=== PATIENT | male | born 1935 | race Caucasian/White ===

== ENCOUNTER → 2017-01-05 | Outpatient (CLI) | payer OTHER ==
[~2017-01-05] MED LIST: ASPEC81 PO; CLTP PO; CZR50 PO; FELO5TAB PO; GLC/500 PO; METAMUCIL PO; OMEG10007 PO; SIMV40TA2 PO
[2017-01-05 12:25] LABS: ALT/SGPT 45 U/L (12-78); AST/SGOT 22 U/L (15-37); BLOOD UREA NITROGEN 23 mg/dl (7-18); BUN/CREATININE RATIO 15.6 (10-20); CALCIUM 9.2 mg/dl (8.5-10.1); CARBON DIOXIDE 26 mmol/L (21-32); CHLORIDE 109 mmol/L (98-107); ESTIMATED AVERAGE GLUCOSE 143 mg/dl; GLUCOSE 155 mg/dl (70-99); HA1C FLAG Normal (Normal); POTASSIUM 4.1 mmol/L (3.5-5.1); SODIUM 140 mmol/L (136-145)
[2017-01-05 12:27] LABS: ALB/GLOB RATIO 1.1 (0.9-2); ALKALINE PHOSPHATASE 65 U/L (45-117); CHOLESTEROL 154 mg/dl (0-200); CHOLESTEROL/HDL RATIO 3.9; HDL CHOLESTEROL 39 mg/dl; LDL CHOLESTEROL CALCULATED 80 mg/dl; TRIGLYCERIDES 174 mg/dl (0-150); VERY LOW DENSITY LIPOPROT CALC 35 mg/dl
== END | disposition home or self-care (01) ==
LOC: C.LABPVFM 08:19
PROVIDERS: ATTEND Family Medicine
DX: E78.5 Hyperlipidemia, unspecified (principal); E11.9 Type 2 diabetes mellitus without complications; I10 Essential (primary) hypertension

== ENCOUNTER → 2017-01-31 | Outpatient (CLI) | payer OTHER | END | disposition home or self-care (01) | LOC: C.LABPVFM 13:59 | PROVIDERS: ATTEND Urology | DX: R35.1 Nocturia (principal) ==

== ENCOUNTER → 2017-06-15 | Outpatient (CLI) | payer OTHER ==
[2017-06-15 13:04] LABS: HEMOGLOBIN A1C 7.3 % (4.5-5.6)
[2017-06-15 13:09] LABS: BLOOD UREA NITROGEN 22 mg/dl (7-18); CALCIUM 9.4 mg/dl (8.5-10.1); CARBON DIOXIDE 26 mmol/L (21-32); CHOLESTEROL 137 mg/dl (0-200); CREATININE 1.35 mg/dl (0.60-1.40); GLUCOSE 162 mg/dl (70-99); POTASSIUM 3.9 mmol/L (3.5-5.1); SODIUM 138 mmol/L (136-145)
[2017-06-15 13:12] LABS: LDL CHOLESTEROL CALCULATED 70 mg/dl
== END | disposition home or self-care (01) ==
LOC: C.LABPVFM 10:46
PROVIDERS: ATTEND Family Medicine
DX: I10 Essential (primary) hypertension (principal); E11.9 Type 2 diabetes mellitus without complications; E78.5 Hyperlipidemia, unspecified

== ENCOUNTER → 2018-01-06 | Outpatient (CLI) | payer OTHER ==
[2018-01-06 13:05] LABS: HEMOGLOBIN A1C 7.2 % (4.5-5.6)
[2018-01-06 13:19] LABS: ALKALINE PHOSPHATASE 58 U/L (45-117); ALT/SGPT 51 U/L (12-78); AST/SGOT 26 U/L (15-37); BLOOD UREA NITROGEN 26 mg/dl (7-18); CALCIUM 9.3 mg/dl (8.5-10.1); CARBON DIOXIDE 27 mmol/L (21-32); CHOLESTEROL 131 mg/dl (0-200); CREATININE 1.24 mg/dl (0.60-1.40); GLUCOSE 164 mg/dl (70-99); LDL CHOLESTEROL CALCULATED 62 mg/dl; POTASSIUM 3.7 mmol/L (3.5-5.1); SODIUM 136 mmol/L (136-145); TOTAL PROTEIN 7.7 gm/dl (6.4-8.2)
== END | disposition home or self-care (01) ==
LOC: C.LABPVFM 08:54
PROVIDERS: ATTEND Family Medicine
DX: I10 Essential (primary) hypertension (principal)

== ENCOUNTER → 2018-01-25 | Outpatient (CLI) | payer OTHER | END | disposition home or self-care (01) | LOC: C.LABPVFM 09:17 | PROVIDERS: ATTEND Urology | DX: C61 Malignant neoplasm of prostate (principal) ==

== ENCOUNTER 2022-10-05 14:25 | Inpatient (IN) ==
--- NOTE | 2022-10-05 15:03 | ED Triage Note ---
Date of Service October 05, 2022 History of Present Illness This patient was briefly evaluated while in triage. An abbreviated physical exam was performed. This patient is a 87-year-old Male who presents to the ED for evaluation of elevated glucose levels. The patient was just seen at Dr. Lazaro's office, with recent diagnosis of AML. His blood glucose levels have been significantly elevated, with known history of diabetes. Dr. Velásquez believes that the patient needs to be assessed and possibly transferred to [facility] for further comprehensive care. Patient denies any other significant symptoms including chest pain or shortness of breath. He denies any recent illness or exposure to anyone who has been sick. The patient was administered insulin 10 units at 12:15 PM. Physical Exam CONSTITUTIONAL: Patient does not appear in any acute distress HEENT: No scleral icterus. RESPIRATORY: Clear to auscultation bilaterally with no wheezing, crackles, rhonchi or stridor. CARDIOVASCULAR: Regular rate and rhythm with no murmurs, rubs or gallops. GASTROINTESTINAL: Bowel sounds present in all quadrants. INTEGUMENTARY: No rash or other significant dermatologic conditions noted. NEUROLOGIC: No focal neurologic deficits noted. Initial orders for labs and / or imaging were placed and patient was placed in the waiting area until a bed is available. Please see further documentation for the full ED course.
[2022-10-05] MEDS ORDERED: SODIUM CHLORIDE 0.9% 1000ML 1,000 ML IV STA (15:05)
[2022-10-05 16:13] LABS: Hemoglobin 7.8 g/dl (14.0-18.0); Mean Corpuscular Hemoglobin 36.4 pg (25.0-34.0); Mean Corpuscular Hgb Conc 35.5 g/dL (32.0-36.0); Mean Corpuscular Volume 102.8 fL (80.0-100.0); Mean Platelet Volume 11.8 fL (9.4-12.4); Platelet Count 36 K/uL (130-400); RDW Coefficient of Variation 16.2 % (11.5-14.5); Red Blood Count 2.14 M/uL (4.70-6.10)
--- NOTE | 2022-10-05 16:15 | Emergency Department Note ---
Impression & Plan DKA (diabetic ketoacidosis), Acute myeloid leukemia, Hyperglycemia ED Provider Note INFORMANT: Patient and family ED PROVIDER(S): Stone Ortega MD CHIEF COMPLAINT: Hyperglycemia and AML PLAN: Disposition: Admitted Condition: Good Outpatient prescription management: None Referral: None MEDICAL DECISION MAKING: Patient presented by direction of oncology. He was evaluated. Vital signs were stable. Blood work was initiated. He was found to have pancytopenia but his l evels were slightly better than prior. Patient's chemistry panel was concerning as he had findings concerning for mild DKA. Patient was hydrated. Discussed with ED pharmacist and started insulin drip. I did discuss his situation with Dr. Tay his referring oncologist. He did request a consultation with [facility]. I discussed the case with Dr. Meek at [facility] oncology. She felt that the patient did not require transfer this evening and she requested that Dr. Tay be in touch with the [facility] network tomorrow to discuss the case with the leukemia specialist there and further plan the patient's care. I did notify Dr. Lazaro of this and he was in agreement. Consultation was made with Dr. Estiven Ramirez of the [facility] service. Case was discussed and diagnostics were reviewed. Patient was evaluated in the ER for further management. Discussed with housing assistant property manager. Discussed with ED pharmacist. After review of the information above and other included data, I feel the patient requires admission. Triage Nursing notes reviewed and agree them. Vital Signs: reviewed and remarkable for no significant abnormalities Prior /Outside records reviewed: Primary care records reviewed. History of pancytopenia. Differential diagnosis: Infection, dehydration, metabolic abnormality, hypo/hyperglycemia, electrolyte disturbance, anemia, hypoxia, cardiac sources, intracerebral event, toxicologic, neurologic, as well as other pathologies. Diagnostics, as interpreted by me: ECG: Twelve-lead ECG reveals a sinus rhythm with occasional PVCs at 82 bpm. PVCs. Incomplete right bundle branch block. Nonspecific ST. No ST elevation. Cardiac Monitoring: Cardiac monitoring ordered by me: The patient was placed on continuous cardiac monitoring and observed. It revealed a sinus rhythm at 82 beats per minute occasional ectopy but no evidence of dysrhythmia. Medical decision rules: none Imaging studies: Chest x-ray. Findings: A chest x-ray was performed and revealed no pneumothorax, effusion, infiltrate, pulmonary edema, free air under the diaphragm, or wide mediastinum. Impression: No acute disease. HPI: This patient is a 87-year-old male who presents to the ED for evaluation of high blood glucose levels. The patient was just seen at oncology, Dr. Lazaro's office, with recent diagnosis of AML. His blood glucose levels have been significantly elevated, with known history of diabetes. The patient was administered insulin 10 units at 12:15 PM. He denies any recent illness or exposure to anyone who has been sick. Current pain is rated as 0/10. Pt denies LOC, headache, fevers, chills, diaphoresis, visual changes, neck pain, chest pain, breathing difficulties, nausea, vomiting, abdominal pain, back pain, melena, hematochezia, urinary symptoms, numbness, weakness, lymphadenopathy, rash, or other complaints. PAST MEDICAL HISTORY: See Below, anemia, pancytopenia PAST SURGICAL HISTORY: See Below, SOCIAL HISTORY: See Below, retired HOME MEDICATIONS: See Below ALLERGIES: See Below VITALS: See Below PHYSICAL EXAMINATION: GENERAL: Awake, alert, [id number], in no distress HENT: Normocephalic, atraumatic. Oropharynx unremarkable. EYES: pale conjunctiva. Sclera non-icteric. NECK: Inspection normal. Non-tender. Supple. No nuchal rigidity. FROM. No masses. RESPIRATORY: Clear to auscultation. No wheezes. No rales. Normal respiratory effort. CARDIAC: Normal rate. Normal rhythm. No murmurs. No rubs. Extremities warm and well perfused. Pulses equal. No JVD. GI: Soft, non-distended. No tenderness to palpation. No rebound or guarding. No masses. RECTAL: Deferred. MUSCULOSKELETAL: Atraumatic. Chest examination reveals no tenderness. The back is symmetrical on inspection without obvious abnormality. There is no CVA tenderness to palpation. No joint edema. LOWER EXTREMITIES: Calves are equal size bilaterally and non-tender. No edema. No discoloration. NEURO: Normal sensorium. No sensory or motor deficits noted. SKIN: No rash or jaundice noted. Past Med/Surg History Medical History Diabetes Diverticulosis of colon History of prostate cancer Surgical History History of hernia repair Family History Denies family history of Ovarian cancer Prostate cancer Myocardial infarction Breast cancer Colorectal cancer Social History Smoking Status: Never smoker Second Hand Exposure: No; Do You Dip or Chew Tobacco: No; Hx Alcohol Use: No Hx Substance Use: No Preferred Language: Yoruba Communication Ability: Effective Park Ranger Required: No Beliefs That Will Affect Care: None marital status: Current Living Situation: Spouse current occupational status: retired How many Children do You have: 3 Feels Safe at Home: Yes Childhood Exposure to Second-Hand Smoke: No Diet: regular caffeine: Yes (Iced Tea ) Dental Care, Regularly: Yes Physical Activity Frequency: Daily Seatbelt Use: always Sunscreen Use: No Allergies Allergies Allergy/AdvReac Type Severity Reaction Status Date / Time No Known Allergies Allergy Verified 10/05/22 18:05 Home Meds Home Medications Medication Instructions Recorded Confirmed aspirin 81 mg tablet,delayed 81 mg PO DAILY 01/05/19 10/05/22 release amlodipine 10 mg tablet 10 mg PO DAILY 10/05/22 10/05/22 hydrochlorothiazide 12.5 mg tablet 12.5 mg PO QAM 10/05/22 10/05/22 psyllium husk 0.52 gram capsule 0.52 g PO BID 10/05/22 10/05/22 (Fiber (psyllium husk)) Previous Rx's Medication Instructions Recorded metformin 1,000 mg tablet 1,000 mg PO BID #180 tabs 03/19/22 atorvastatin 20 mg tablet 20 mg PO DAILY #90 tabs 04/06/22 cyanocobalamin (vitamin B-12) 1,000 mcg PO DAILY #30 tabs 09/03/22 1,000 mcg tablet (Vitamin B-12) magnesium hydroxide 400 mg (170 mg 400 mg PO DAILY #60 tabs 09/03/22 magnesium) chewable tablet losartan 50 mg tablet 50 mg PO DAILY #90 tabs 09/07/22 blood sugar diagnostic (OneTouch #100 ea 10/04/22 Ultra Test strips) blood-glucose meter (Blood Glucose #1 ea 10/04/22 Monitoring kit) lancets 33 gauge (BD Ultra Fine #100 ea 10/04/22 Lancets) insulin glargine 100 unit/mL (3 10 unit (0.1 mL) subcut QPM #15 mL 10/05/22 mL) subcutaneous pen (Lantus Solostar U-100 Insulin) pen needle, diabetic, safety 30 #100 ea 10/05/22 gauge x 3/16" (Assure ID Pen Needle) Results & Data (ED) Vital Signs Vital Signs - 24 hr 10/05/22 15:00 10/05/22 15:36 10/05/22 15:37 Temperature 36.3 C L Temperature Source Temporal Artery Scan Pulse Rate 84 77 Pulse Rate [Right Apical] 77 Pulse Rate from SpO2 Sensor Pulse Rhythm Regular Pulse Strength Normal Respiratory Rate 20 16 18 Respiratory Effort / Characteristics Non-Labored Spontaneous Non-Labored Spontaneous Respiratory Depth Normal Normal Respiratory Pattern Regular Regular Blood Pressure 128/70 Blood Pressure [Right Arm] 139/64 Blood Pressure Mean 89 Blood Pressure Mean [Right Arm] 89 Blood Pressure Position Sitting Pulse Oximetry 97 96 96 Oxygen Delivery Method Room Air Room Air Room Air Sepsis Recent Fever Within 48 Hours No Sepsis New/Unexplained Change in Mental Status No Sepsis Action Taken by Nursing No Action Required 10/05/22 15:28 10/05/22 16:00 10/05/22 16:30 Temperature Temperature Source Pulse Rate 73 82 80 Pulse Rate [Right Apical] Pulse Rate from SpO2 Sensor 81 78 Pulse Rhythm Pulse Strength Respiratory Rate 24 22 Respiratory Effort / Characteristics Respiratory Depth Respiratory Pattern Blood Pressure 132/68 128/48 L Blood Pressure [Right Arm] Blood Pressure Mean 89 74 Blood Pressure Mean [Right Arm] Blood Pressure Position Pulse Oximetry 92 92 Oxygen Delivery Method Room Air Room Air Sepsis Recent Fever Within 48 Hours Sepsis New/Unexplained Change in Mental Status Sepsis Action Taken by Nursing 10/05/22 17:00 10/05/22 17:30 10/05/22 19:00 Temperature Temperature Source Pulse Rate 81 82 89 Pulse Rate [Right Apical] Pulse Rate from SpO2 Sensor 81 84 Pulse Rhythm Pulse Strength Respiratory Rate 23 23 24 Respiratory Effort / Characteristics Respiratory Depth Respiratory Pattern Blood Pressure 159/68 H 155/76 H 160/75 H Blood Pressure [Right Arm] Blood Pressure Mean 98 102 103 Blood Pressure Mean [Right Arm] Blood Pressure Position Pulse Oximetry 91 91 Oxygen Delivery Method Room Air Room Air Sepsis Recent Fever Within 48 Hours Sepsis New/Unexplained Change in Mental Status Sepsis Action Taken by Nursing Laboratory Data 10/05/22 15:24 10/05/22 15:24 Lab Results 10/05/22 10/05/22 10/05/22 Range/Units 15:24 15:24 15:24 WBC 1.00 L (4.8-10.8) K/ul RBC 2.14 L (4.70-6.10) M/uL Hgb 7.8 L (14.0-18.0) g/dl Hct 22.0 L (42.0-52.0) % MCV 102.8 H (80.0-100.0) fL MCH 36.4 H (25.0-34.0) pg MCHC 35.5 (32.0-36.0) g/dL RDW Std Deviation 59.0 H (36.4-46.3) fL RDW Coeff of Carola 16.2 H (11.5-14.5) % Plt Count 36 L (130-400) K/uL MPV 11.8 (9.4-12.4) fL Immature Gran % (Auto) 1.0 % Neut % (Auto) 47.0 % Lymph % (Auto) 45.0 % Cooke % (Auto) 7.0 % Eos % (Auto) 0.0 % Baso % (Auto) 0.0 % Neut # (Auto) 0.47 L* (1.40-6.50) K/uL Lymph # (Auto) 0.45 L (1.2-3.4) K/uL Cooke # (Auto) 0.07 L (0.11-0.59) K/uL Eos # (Auto) 0.00 (0-0.50) K/uL Baso # (Auto) 0.00 (0-0.2) K/uL Immature Gran # (Auto) 0.01 (0.01-0.20) K/uL Platelet Estimate Decreased L (Normal) Ovalocytes 2+ Acanthocytes (Spur) 1+ PT 12.6 H (9.0-12.0) Seconds INR 1.2 H (0.9-1.1) APTT 20.8 L (21.0-31.0) Seconds PTT Ratio 0.7 VBG pH (7.36-7.41) VBG pCO2 (38-50) mmHg VBG pO2 mmHg VBG HCO3 mmol/L VBG O2 Saturation % VBG Base Excess mEq/L Sodium 131 L (136-145) mmol/L Potassium 4.1 (3.5-5.1) mmol/L Chloride 94 L (98-107) mmol/L Carbon Dioxide 19 L (21-32) mmol/L Anion Gap 18 H (3-11) BUN 35 H (6-23) mg/dl Creatinine 1.46 H (0.6-1.4) mg/dl Est Cr Clr Drug Dosing 37.5 ml/min Est GFR ( Amer) 49.8 ml/min Est GFR (Non-Af Amer) 42.9 ml/min BUN/Creatinine Ratio 24.0 H (10-20) Glucose 454 H* (70-99(Fasting)) mg/dl POC Glucose (70-99) mg/dl Calcium 9.3 (8.6-10.3) mg/dl Total Bilirubin 1.0 (0.2-1.0) mg/dl AST 11 L (13-39) U/L ALT 12 (7-52) U/L Alkaline Phosphatase 58 (34-104) U/L Troponin I High Sens 13.2 (0-20) pg/ml Total Protein 7.0 (6.0-8.3) gm/dl Albumin 3.8 (3.4-5.0) gm/dl Globulin 3.2 (2.5-4.0) gm/dl Albumin/Globulin Ratio 1.2 (0.9-2) Lipase 47 (11-82) U/L SARS-CoV-2, RNA, NAAT (NEGATIVE) Blood Type Antibody Screen 10/05/22 10/05/22 10/05/22 Range/Units 16:49 16:49 17:01 WBC (4.8-10.8) K/ul RBC (4.70-6.10) M/uL Hgb (14.0-18.0) g/dl Hct (42.0-52.0) % MCV (80.0-100.0) fL MCH (25.0-34.0) pg MCHC (32.0-36.0) g/dL RDW Std Deviation (36.4-46.3) fL RDW Coeff of Carola (11.5-14.5) % Plt Count (130-400) K/uL MPV (9.4-12.4) fL Immature Gran % (Auto) % Neut % (Auto) % Lymph % (Auto) % Cooke % (Auto) % Eos % (Auto) % Baso % (Auto) % Neut # (Auto) (1.40-6.50) K/uL Lymph # (Auto) (1.2-3.4) K/uL Cooke # (Auto) (0.11-0.59) K/uL Eos # (Auto) (0-0.50) K/uL Baso # (Auto) (0-0.2) K/uL Immature Gran # (Auto) (0.01-0.20) K/uL Platelet Estimate (Normal) Ovalocytes Acanthocytes (Spur) PT (9.0-12.0) Seconds INR (0.9-1.1) APTT (21.0-31.0) Seconds PTT Ratio VBG pH 7.39 (7.36-7.41) VBG pCO2 35 L (38-50) mmHg VBG pO2 16 mmHg VBG HCO3 21 mmol/L VBG O2 Saturation < 60.0 % VBG Base Excess -3.1 mEq/L Sodium (136-145) mmol/L Potassium (3.5-5.1) mmol/L Chloride (98-107) mmol/L Carbon Dioxide (21-32) mmol/L Anion Gap (3-11) BUN (6-23) mg/dl Creatinine (0.6-1.4) mg/dl Est Cr Clr Drug Dosing ml/min Est GFR ( Amer) ml/min Est GFR (Non-Af Amer) ml/min BUN/Creatinine Ratio (10-20) Glucose (70-99(Fasting)) mg/dl POC Glucose 437 H* (70-99) mg/dl Calcium (8.6-10.3) mg/dl Total Bilirubin (0.2-1.0) mg/dl AST (13-39) U/L ALT (7-52) U/L Alkaline Phosphatase (34-104) U/L Troponin I High Sens (0-20) pg/ml Total Protein (6.0-8.3) gm/dl Albumin (3.4-5.0) gm/dl Globulin (2.5-4.0) gm/dl Albumin/Globulin Ratio (0.9-2) Lipase (11-82) U/L SARS-CoV-2, RNA, NAAT (NEGATIVE) Blood Type O Positive Antibody Screen NEGATIVE 10/05/22 10/05/22 10/05/22 Range/Units 17:06 17:43 18:45 WBC (4.8-10.8) K/ul RBC (4.70-6.10) M/uL Hgb (14.0-18.0) g/dl Hct (42.0-52.0) % MCV (80.0-100.0) fL MCH (25.0-34.0) pg MCHC (32.0-36.0) g/dL RDW Std Deviation (36.4-46.3) fL RDW Coeff of Carola (11.5-14.5) % Plt Count (130-400) K/uL MPV (9.4-12.4) fL Immature Gran % (Auto) % Neut % (Auto) % Lymph % (Auto) % Cooke % (Auto) % Eos % (Auto) % Baso % (Auto) % Neut # (Auto) (1.40-6.50) K/uL Lymph # (Auto) (1.2-3.4) K/uL Cooke # (Auto) (0.11-0.59) K/uL Eos # (Auto) (0-0.50) K/uL Baso # (Auto) (0-0.2) K/uL Immature Gran # (Auto) (0.01-0.20) K/uL Platelet Estimate (Normal) Ovalocytes Acanthocytes (Spur) PT (9.0-12.0) Seconds INR (0.9-1.1) APTT (21.0-31.0) Seconds PTT Ratio VBG pH (7.36-7.41) VBG pCO2 (38-50) mmHg VBG pO2 mmHg VBG HCO3 mmol/L VBG O2 Saturation % VBG Base Excess mEq/L Sodium (136-145) mmol/L Potassium (3.5-5.1) mmol/L Chloride (98-107) mmol/L Carbon Dioxide (21-32) mmol/L Anion Gap (3-11) BUN (6-23) mg/dl Creatinine (0.6-1.4) mg/dl Est Cr Clr Drug Dosing ml/min Est GFR ( Amer) ml/min Est GFR (Non-Af Amer) ml/min BUN/Creatinine Ratio (10-20) Glucose (70-99(Fasting)) mg/dl POC Glucose 441 H* 357 H* (70-99) mg/dl Calcium (8.6-10.3) mg/dl Total Bilirubin (0.2-1.0) mg/dl AST (13-39) U/L ALT (7-52) U/L Alkaline Phosphatase (34-104) U/L Troponin I High Sens (0-20) pg/ml Total Protein (6.0-8.3) gm/dl Albumin (3.4-5.0) gm/dl Globulin (2.5-4.0) gm/dl Albumin/Globulin Ratio (0.9-2) Lipase (11-82) U/L SARS-CoV-2, RNA, NAAT NEGATIVE (NEGATIVE) Blood Type Antibody Screen Administered Medications Insulin Human Regular 250 (units/ Sodium Chloride) 250 mls @ 6.6 mls/hr IV .Q24H [facility]; Protocol Stop: 11/04/22 16:44 Last Titration: 10/05/22 19:45 Dose: 6.6 unit/hr, 6.6 mls/hr Documented By: MARZENA Co-signed By: KRISTIAN Titration: 10/05/22 18:54 Dose: 8.2 unit/hr, 8.2 mls/hr Documented By: SHAUNA Co-signed By: STAN Admin: 10/05/22 17:45 Dose: 8.2 unit/hr, 8.2 mls/hr Documented By: STAN Co-signed By: HG Discontinued Medications Sodium Chloride (Nss 1000ml) 1,000 mls @ 999 mls/hr IV .Q1H1M STA Stop: 10/05/22 16:05 Last Infusion: 10/05/22 16:47 Dose: 0 mls/hr Documented By: Admin: 10/05/22 15:38 Dose: 999 mls/hr Documented By: STAN Sodium Chloride (Nss 1000ml) 500 mls @ 999 mls/hr IV .Q31M ONE Stop: 10/05/22 17:10 Last Infusion: 10/05/22 17:36 Dose: 0 mls/hr Documented By: Admin: 10/05/22 17:04 Dose: 999 mls/hr Documented By: STAN Sodium Chloride (Nss 1000ml) 1,000 mls @ 125 mls/hr IV .Q8H YUNIER Stop: 11/04/22 16:44 Last Admin: 10/05/22 18:11 Dose: 125 mls/hr Documented By: Imaging Data Radiologist's Impression: Chest X-Ray 10/05/22 15:05 SINGLE VIEW CHEST CLINICAL HISTORY: Atypical chest pain FINDINGS: An AP, portable, upright chest radiograph is compared to study dated 09/03/2022. The heart is mildly enlarged noting atherosclerotic calcification of the thoracic aorta. The pulmonary vasculature is noncongested. There is bibasilar scarring/atelectasis. The lungs and pleural spaces are otherwise clear. No pneumothorax is seen. The skeletal structures are osteopenic. The bony thorax is grossly intact. IMPRESSION: Cardiomegaly with no acute cardiopulmonary abnormality identified. ACT 112: Negative or not required by law. Electronically signed by: Ken Gupta M.D. 10/05/2022 4:42 PM Discharge Plan Visit Data Chief Complaint: Illness Stated Complaint: high blood sugar, iron transfusion, aml ED Provider: Stone Ortega Discharge Problem: DKA (diabetic ketoacidosis), Acute myeloid leukemia, Hyperglycemia Patient Disposition: Admitted As Inpatient Discharge Instructions Interventions: ED Discharge Assessment Last Done: 10/05/22 20:20
[2022-10-05 16:34] LABS: INR 1.2 (0.9-1.1); Partial Thromboplastin Ratio 0.7; Partial Thromboplastin Time 20.8 Seconds (21.0-31.0); Prothrombin Time 12.6 Seconds (9.0-12.0)
[2022-10-05 16:35] LABS: Albumin Globulin Ratio 1.2 (0.9-2); Albumin Level 3.8 gm/dl (3.4-5.0); Calcium 9.3 mg/dl (8.6-10.3); Creatinine Clr Calc Pharmacy 37.5 ml/min; Est GFR (African American) 49.8 ml/min; Est GFR (Non-African American) 42.9 ml/min; Globulin 3.2 gm/dl (2.5-4.0); Potassium 4.1 mmol/L (3.5-5.1); Troponin I High Sensitivity 13.2 pg/ml (0-20)
[2022-10-05] MEDS ORDERED: SODIUM CHLORIDE 0.9% 1000ML 500 ML IV ONE (16:40)
[2022-10-05] MEDS ORDERED: DKA GOAL RANGE 150-250 mg/dl ONE (16:43)
[2022-10-05] MEDS ORDERED: STAT INSULIN DRIP STA (16:43)
[2022-10-05] MEDS ORDERED: DEXTROSE 50% 50 ML SYRINGE IV PRN (16:43)
[2022-10-05] MEDS ORDERED: GLUCAGON FOR INJ 1 MG VIAL SQ PRN (16:43)
[2022-10-05] MEDS ORDERED: GLUCOSE 10 TAB/TUBE PO PRN (16:43)
[2022-10-05] MEDS ORDERED: GLUCOSE 40% GEL 15 GM TUBE PO PRN (16:43)
[2022-10-05] MEDS ORDERED: CARBOHYDRATES FOR HYPOGLYCEMIA PO PRN (16:43)
--- NOTE | 2022-10-05 16:43 | XRay Report ---
SINGLE VIEW CHEST CLINICAL HISTORY: Atypical chest pain FINDINGS: An AP, portable, upright chest radiograph is compared to study dated 09/03/2022. The heart i s mildly enlarged noting atherosclerotic calcification of the thoracic aorta. The pulmonary vasculatu re is noncongested. There is bibasilar scarring/atelectasis. The lungs and pleural spaces are otherwi se clear. No pneumothorax is seen. The skeletal structures are osteopenic. The bony thorax is grossly intact. IMPRESSION: Cardiomegaly with no acute cardiopulmonary abnormality identified. ACT 112: Negative or not required by law. Electronically signed by: Ken Gupta M.D. 10/05/2022 4:42 PM
[2022-10-05] MEDS ORDERED: SODIUM CHLORIDE 0.9% 1000ML 1,000 ML IV SCH (16:45)
[2022-10-05 17:02] LABS: Acanthocytes 1+; Immature Granulocytes # (auto) 0.01 K/uL (0.01-0.20); Lymphocytes # (auto) 0.45 K/uL (1.2-3.4); Monocytes # (auto) 0.07 K/uL (0.11-0.59); Neutrophils # (auto) 0.47 K/uL (1.40-6.50); Ovalocytes 2+; Platelet Estimate Decreased (Normal)
[2022-10-05 17:09] LABS: Base Excess VBG -3.1 mEq/L; HCO3 VBG 21 mmol/L; Oxygen Saturation VBG < 60.0 %; PCO2 VBG 35 mmHg (38-50); PO2 VBG 16 mmHg; pH VBG 7.39 (7.36-7.41)
[2022-10-05] MEDS: INSULIN REGULAR 250 UNITS in SODIUM CHLORIDE 0.9% 247.5 ML IV SCH (17:45)
--- NOTE | 2022-10-05 18:35 | History & Physical Report ---
Date of Service October 05, 2022 Assessment & Plan (1) Hyperglycemia: Plan: Type II DM, hyperglycemia, HHS. Acute, severe, unstable. On metformin twice daily, glargine 10 units nightly [employer] recently started he only has had 1 dose of insulin total Admitting BSG of 454, received 10 units of insulin with 2-hour repeat of 441. Subsequently placed on insulin drip in ER Remains with elevated glucose Renal function is less than 1.24 at baseline, admitting creatinine 1.46 JAYSON versus previously azotemia Patient has increased anion gap of 18 Bicarb 19, sodium 131 which corrects to normal COVID-negative CXR without acute findings Placed on insulin drip while in the ER. Potassium 4.1 Received 2.5 L NSS IV FM switched to balanced with potassium, rate 125. BMP every 4 hours, adjust potassium as needed, add D5 per protocol N.p.o. until gap closes, bicarb improved BMP every 4 hours, VBG every 4 hours -Once stable basal rate is established, can use to calculate TDD and subcu insulin doses Recently diagnosed AML with pancytopenia Recent diagnosis from biopsy last tuesday performed 2/ pancytopenia, following with [facility] No blast crisis at time of admission, patient is with pancytopenia counts WBC 1.0, hemoglobin 7.8, platelets 36. No acute change in management at this time - Chronic anemia hgb ranging 7-8 - Discussed w Dr. Tillman at [facility] [place]. Does not require acute treatment as patient is not in blast crisis, transfer is declined. Recommend tx for hyperglycemia and hematology consult in AM Bone marrow specimen drawn 10/01/2022 pending final report. Flow cytometry w/ CD34 positive myeloblasts consistent with acute myeloid leukemia, blasts represented 67% of total cellular component. Report copied below Diagnosis: 67% CD34+ myeloblasts, consistent with acute myeloid leukemia. Comments: The flow cytometry findings show increased blasts (67.1% of total cells), consistent with acute myeloid leukemia (AML). Proper WHO classification requires morphological confirmation (current gold standard) as well as correlation with clinical information, cytogenetics, FISH and/or molecular findings. Specimen Viability: 99% Cell Yield: 4.33 Million Hematology/Oncology consulted Follow for signs of bleeding, trend cell counts. Hemoglobin transfusion threshold 7.0, defer quantitatively triggered platelets at this time. Patient is afebrile, without leukocytosis, has had no recent infectious symptoms including cough/nausea/vomiting/fever/chills/shortness of breath. Given his underlying neutropenia may not be able to mount an aggressive fever response. Procalcitonin is pending, blood cultures are pending given presenting hyperglycemia. If patient has fever, procalcitonin is positive, or blood cultures are positive/source of infection declares itself cover with broad- spectrum antibiotics cefepime/vancomycin Hypertension, history of orthostasis Hold losartan in the setting of JAYSON/prerenal azotemia; this was decreased from 100 mg 09/26 due to orthostatic symptoms Continue amlodipine 10 mg daily Aspirin held for thrombocytopenia, patient was on this for primary prophylaxis no history of CAD/IN/CVA Hydrochlorothiazide held for JAYSON versus prerenal azotemia Hyperlipidemia Continue atorvastatin 20 mg DVT prophylaxis: Pharmacal prophylaxis deferred in the setting of platelet count 36, SCDs Disposition: PCU while on insulin gtt CODE STATUS: Full code Diet: N.p.o., once gap closes and bicarb normalizes and BSG less than 250 may advance to type II DM with subcu insulin (2) Acute myeloid leukemia: (3) HTN (hypertension): (4) Uncontrolled diabetes mellitus: (5) Hyperlipidemia: History of Present Illness Primary Care Provider: JACKIE Cohen Akira is an 87-year-old male with a past medical history of AML, DM, hypertension, hyperlipidemia, orthostatic hypotension, and neutropenia who presents to the emergency department with high glucose levels. He was at [facility] following up for a new diagnosis of AML when he was found to have significant hyperglycemia, was given 10 units of insulin, and referred to the ER for further care Akira is seen at the bedside with his two sons present. He was at the [facility] seeing Dr. Tay and was going to see Tanya for AML. Started seeing Dr. Tay 09/17. Had recently gotten prelim results of bone marrow aspiration performed last Tuesday consistent with AML. INitial AML workup was triggered by overall fatigue and weakness which has been present for many weeks. After all blood counts were low went to ER, and was referred to oncology for pancytopenia after. September 17 was scheduled for bone marrow biopsy after getting B12 injection for deficiency. Had 1 pRBC transfusion for low levels last week. Has a hx of DM2, overall sugar levels have been climbing and very poorly controlled. Got a test kit last night from the pharmacy and was 515. >600 this AM (POC machine from pharmacy maxed out). Took first shot of insulin at 12:15pm today, had never beenon insulin prior. Dr. Tay was concerned about BSG and also wanted to facilitate AML care so recommended ER evaluation. Hx HTN, losartan recently decreased by half due to orthostasis a few weeks ago. Aspirin held for several days due to BM biopsy. No hx of CAD/stroke/IN, takes aspirin for primary prevention due to HTN. Hx prostate cancer 14 years ago, had 42 radiation treatments and 3 years of androgen deprivation. No problems since that time. No LUTS. Medical History: Reviewed Medications: Reviewed Surgical History: Reviewed Family history: Reviewed Allergies: Reviewed Social History: Code Status: Allergies Allergy/AdvReac Type Severity Reaction Status Date / Time No Known Allergies Allergy Verified 10/05/22 18:05 Home Medications Medication Instructions Recorded Confirmed Type aspirin 81 mg tablet,delayed 81 mg PO DAILY 01/05/19 10/05/22 History release metformin 1,000 mg tablet 1,000 mg PO BID #180 tabs 03/19/22 10/05/22 Rx atorvastatin 20 mg tablet 20 mg PO DAILY #90 tabs 04/06/22 10/05/22 Rx cyanocobalamin (vitamin B-12) 1,000 mcg PO DAILY #30 tabs 09/03/22 10/05/22 Rx 1,000 mcg tablet (Vitamin B-12) magnesium hydroxide 400 mg (170 mg 400 mg PO DAILY #60 tabs 09/03/22 10/05/22 Rx magnesium) chewable tablet losartan 50 mg tablet 50 mg PO DAILY #90 tabs 09/07/22 10/05/22 Rx blood sugar diagnostic (OneTouch #100 ea 10/04/22 10/05/22 Rx Ultra Test strips) blood-glucose meter (Blood Glucose #1 ea 10/04/22 10/05/22 Rx Monitoring kit) lancets 33 gauge (BD Ultra Fine #100 ea 10/04/22 10/05/22 Rx Lancets) amlodipine 10 mg tablet 10 mg PO DAILY 10/05/22 10/05/22 History hydrochlorothiazide 12.5 mg tablet 12.5 mg PO QAM 10/05/22 10/05/22 History insulin glargine 100 unit/mL (3 10 unit (0.1 mL) subcut QPM #15 mL 10/05/22 10/05/22 Rx mL) subcutaneous pen (Lantus Solostar U-100 Insulin) pen needle, diabetic, safety 30 #100 ea 10/05/22 10/05/22 Rx gauge x 3/16" (Assure ID Pen Needle) psyllium husk 0.52 gram capsule 0.52 g PO BID 10/05/22 10/05/22 History (Fiber (psyllium husk)) Past Med/Surg History Medical History Diabetes Diverticulosis of colon History of prostate cancer Surgical History History of hernia repair Family History Denies family history of Ovarian cancer Prostate cancer Myocardial infarction Breast cancer Colorectal cancer Social History Smoking Status: Never smoker Second Hand Exposure: No; Do You Dip or Chew Tobacco: No; Hx Alcohol Use: No Hx Substance Use: No Preferred Language: [place] Communication Ability: Effective Burner Shaft Required: No Beliefs That Will Affect Care: None marital status: Current Living Situation: Spouse current occupational status: retired How many Children do You have: 3 Feels Safe at Home: Yes Childhood Exposure to Second-Hand Smoke: No Diet: regular caffeine: Yes (Iced Tea ) Dental Care, Regularly: Yes Physical Activity Frequency: Daily Seatbelt Use: always Sunscreen Use: No Review of Systems Review of Systems: All systems reviewed & are unremarkable except as noted in HPI & below Physical Exam Physical Exam: General: A&Ox3. NAD. Cooperative. History is collected with assistance of sons about HEENT: Atraumatic, normocephalic. MM dry pupils equal and reactive to light. Vision and hearing grossly intact Pulm: CTAB A&P. -wheezes, -rales, -rhonchi. Symmetrical chest rise. No increased work of breathing. No respiratory distress. Cardiac: RRR, -mrg. Radial pulses intact and symmetrical. Abdominal: Nontender, nondistended, soft. BS present. Extremities: Warm, dry. Results & Data Results & Data Vital Signs (Past 12 Hours) Vital Signs Temp Pulse Pulse Resp BP BP Pulse Ox 10/05/22 16:00 82 24 132/68 92 10/05/22 15:28 73 10/05/22 15:37 77 18 139/64 96 10/05/22 15:36 77 16 96 10/05/22 15:00 36.3 C L 84 20 128/70 97 O2 Del Method 10/05/22 16:00 Room Air 10/05/22 15:28 10/05/22 15:37 Room Air 10/05/22 15:36 Room Air 10/05/22 15:00 Room Air PG Care Time/CCT Total # of Minutes Spent Total Time Spent with Patient: Total time spent is greater than 50% in coordination of care (as documented) at patient's floor/unit and/or counseling patient: Coding Level of Care Code 07460 INT INP/OBS CARE 3/75MIN Diagnoses Hyperglycemia R73.9 Acute myeloid leukemia C92.00 HTN (hypertension) I10 Uncontrolled diabetes mellitus Hyperlipidemia E78.5
[2022-10-05] MEDS ORDERED: POTASSIUM CHLORIDE IV SCH ×2 (20:30→20:41)
[2022-10-05] MEDS ORDERED: PLASMA LYTE A IV SCH ×2 (20:30→20:41)
[2022-10-05] MEDS ORDERED: ACETAMINOPHEN 325 MG TAB PO PRN (20:41)
[2022-10-05] MEDS ORDERED: PENDING D5 1/2NS+20mEq KCL IVF SCH (20:41)
[2022-10-05] MEDS ORDERED: PHARMACY GLYCEMIC MGMT CONSULT PRN (20:41)
--- NOTE | 2022-10-05 21:02 | Electrocardiogram Report ---
Test Reason : Blood Pressure : / mmHG Vent. Rate : 082 BPM Atrial Rate : 082 BPM P-R Int : 146 ms QRS Dur : 096 ms QT Int : 390 ms P-R-T Axes : 042 -25 091 degrees QTc Int : 455 ms Poor data quality, interpretation may be adversely affected Sinus rhythm with occasional Premature ventricular complexes Possible Left atrial enlargement Incomplete right bundle branch block Nonspecific T wave abnormality Abnormal ECG When compared with ECG of 03-SEP-2022 16:46, No significant change Confirmed by Hussain Montiel ([id number]) on 10/05/2022 9:02:19 PM Referred By: Confirmed By:Hussain Montiel
[2022-10-05] MEDS: INSULIN ASPART PER UNIT CHARGE SC SCH (22:02)
[2022-10-05] MEDS: D5W AND 1/2NSS + 20MEQ KCL 20 MEQ/1,000 ML BAG IV SCH (22:21)
[2022-10-05 22:29] LABS: BUN Creatinine Ratio 26.7 (10-20); Calcium 8.8 mg/dl (8.6-10.3); Creatinine Clr Calc Pharmacy 45.6 ml/min; Est GFR (African American) 63.1 ml/min; Est GFR (Non-African American) 54.4 ml/min; Magnesium 1.8 mg/dl (1.7-2.4); Phosphorus 2.9 mg/dl (2.5-4.9); Potassium 3.4 mmol/L (3.5-5.1)
[2022-10-06] MEDS ORDERED: POTASSIUM CHLORIDE CRTAB 20 MEQ TABCR PO STA ×2 (00:03→09:43)
[2022-10-06 01:09] LABS: Calcium 8.8 mg/dl (8.6-10.3); Creatinine Clr Calc Pharmacy 49.3 ml/min; Est GFR (African American) 69.3 ml/min; Est GFR (Non-African American) 59.8 ml/min; Magnesium 1.9 mg/dl (1.7-2.4); Phosphorus 3.1 mg/dl (2.5-4.9); Potassium 3.5 mmol/L (3.5-5.1)
[2022-10-06 05:11] LABS: BUN Creatinine Ratio 26.9 (10-20); Calcium 8.6 mg/dl (8.6-10.3); Creatinine Clr Calc Pharmacy 52.6 ml/min; Est GFR (Non-African American) 64.7 ml/min; Magnesium 1.8 mg/dl (1.7-2.4); Phosphorus 2.8 mg/dl (2.5-4.9); Potassium 3.8 mmol/L (3.5-5.1); Uric Acid 6.7 mg/dl (2.6-7.2)
[2022-10-06 05:34] LABS: Hematocrit (blood only) 16.4 % (42.0-52.0); Immature Granulocytes # (auto) 0.01 K/uL (0.01-0.20); Immature Granulocytes % (auto) 1.3 %; Lymphocytes # (auto) 0.48 K/uL (1.2-3.4); Mean Corpuscular Hemoglobin 36.8 pg (25.0-34.0); Mean Corpuscular Hgb Conc 36.6 g/dL (32.0-36.0); Mean Corpuscular Volume 100.6 fL (80.0-100.0); Mean Platelet Volume 11.2 fL (9.4-12.4); Monocytes # (auto) 0.05 K/uL (0.11-0.59); Monocytes % (auto) 6.3 %; Neutrophils # (auto) 0.26 K/uL (1.40-6.50); Neutrophils % (auto) 32.4 %; Platelet Count 28 K/uL (130-400); RDW Coefficient of Variation 16.4 % (11.5-14.5); RDW Standard Deviation 59.6 fL (36.4-46.3); Red Blood Count 1.63 M/uL (4.70-6.10)
[2022-10-06] MEDS: D5W AND 1/2NSS + 20MEQ KCL 20 MEQ/1,000 ML BAG IV SCH (05:35)
[2022-10-06 05:46] LABS: INR 1.1 (0.9-1.1); Partial Thromboplastin Ratio 0.8; Partial Thromboplastin Time 23.1 Seconds (21.0-31.0); Prothrombin Time 12.2 Seconds (9.0-12.0)
[2022-10-06] MEDS ORDERED: SODIUM CHLORIDE 0.9% 250 ML IV PRN ×2 (06:08→07:48)
--- NOTE | 2022-10-06 07:47 | Hospitalist Progress Note ---
Date of Service October 06, 2022 Assessment & Plan (1) DKA (diabetic ketoacidosis): Plan: Type II DM, hyperglycemia, HHS. Acute, severe, unstable. Most recent A1c up to 9.2 in September On metformin twice daily, glargine 10 units nightly [employer] recently started he only has had 1 dose of insulin total BSG 454 on admission w/ Anion gap 18, Cr 1.45 (baseline <1.24), bicarb 19, Na 131 (corrects to normal) Placed on insulin gtt, D51/2NS. 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 Hgb anemia 7-[address] Tillman at [facility] [place]. Does not require acute treatment as patient is not in blast crisis, transfer is declined. Recommend tx for hyperglycemia and hematology consult in AM Heme/onc consulted for today and discussed w/ Dr Tay given hgb down to 6 (no active bleeding other than from IV sites) 2u PRBC irradiated blood ordered for today B12 prior lows -- continue B12 supplementation 1000mcg Repeat cbc this afternoon, further PRBC if needed Bone marrow specimen drawn 10/01/2022 pending final report. Flow cytometry w/ CD34 positive myeloblasts consistent with acute myeloid leukemia, blasts represented 67% of total cellular component. Report copied below Diagnosis: 67% CD34+ myeloblasts, consistent with acute myeloid leukemia. Comments: The flow cytometry findings show increased blasts (67.1% of total cells), consistent with acute myeloid leukemia (AML). Proper WHO classification requires morphological confirmation (current gold standard) as well as correlation with clinical information, cytogenetics, FISH and/or molecular findings. Specimen Viability: 99% Cell Yield: 4.33 Million Patient is afebrile, without leukocytosis, has had no recent infectious symptoms including cough/nausea/vomiting/fever/chills/shortness of breath. Given his underlying neutropenia may not be able to mount an aggressive fever response. Procal not significantly elevated. Blood cultures pending No abx at this time -- defer to heme/onc. No fevers -- if fever/positive cx will need broad spectrum abx Monitor blood counts Appreciate recs/assistance from heme/onc -- planning for meeting today and possible start chemo w/ Azacitidine daily SQ and monitor for Tumor lysis (4) HTN (hypertension): Plan: Hypertension, history of orthostasis Cr elevated on admit, likely JYASON/prerenal azotemia Losartan was decreased from 100mg to 50mg 09/26 due to orthostatic symptoms and aspirin held for thrombocytopenia (no hx CAD/MA/CVA) Remains on amlodipine daily Continue to hold Losartan/HCTZ Giving a dose of lasix for possible volume overload Checking echo given +murmur on exam to r/o aortic stenosis contributing to symptoms monitor for volume overload, holding off on further IVD (5) Uncontrolled diabetes mellitus: Plan: as above (6) Hyperlipidemia: Plan: Continue atorvastatin 20 mg (7) Murmur: Plan: systolic murmur on exam, O2 use prior losartan decreased due to orthostatic symptoms, HCTZ on hold for JAYSON Has received ~2.5L IVF thus far, dc given BSGs improved and diet ordered Holding off further IVF, check ECHO given murmur on exam to r/o worsening as contributing to initial orthostatic/syncopal symptoms PT/OT consulted Plan DVT proph -- chemo not ordered given low plt. continue SCDs Consult for PT/OT Heme/onc to see this afternoon, possible start chemo inpatient Admission and Anticipated Discharge Date Admission Date: October 05, 2022 Supervising Physician Co-Signing Physician Notes The patient was not seen by me. The chart was reviewed. Case discussed with BLANCA Sierra. Agree with assessment and plan Subjective Patient eval this morning, feeling fatigued, but no acute issues. Discussed w/ hematology/oncology this morning and giving a unit of blood. Some bleeding from IV sites but no other bleeding reported. Discussed meeting for this evening and possible start chemo tomorrow. He notes he got a unit of blood about 3 days ago (first time ever) during his course w/ new diagnosis AML. He is on 2L NC, typically NOT on oxygen at home. Discussed given JVD on imaging, IVF, will give dose of lasix with his blood this morning for hgb 6. Diet advanced to clears, tolerating well. Discussed advancement to regular diet for lunch and repeat labs for this afternoon. Physical Exam Physical Exam: General: chronically ill appearing male, sitting up in bed, eating breakfast, NAD HEENT: head normocephalic, atraumatic, mm slightly dry (improving w/ eating), +JVD upright at 45 degrees Resp: diminished in the bases, poor effort, no w/r, on 2L NC SpO2 98% CV: regular rhythm, +harsh SYSTOLIC murmur, S1/S2 appreciated, ?S3, no pitting edema/calf tenderness, pulses palpable GI: +BS, soft/NT : no montejo, urinal at bedside MSK/Neuro: no focal deficits Psych: AOx3, cooperative with exam Skin: cool, dry Results & Data Results & Data Vital Signs (Past 12 Hours) Vital Signs Temp Pulse Pulse Resp BP BP Pulse Ox 10/06/22 07:37 36.7 C 84 22 136/70 95 10/06/22 05:39 36.8 C 74 20 141/61 H 92 10/06/22 03:09 37.3 C 71 24 123/60 93 10/05/22 23:00 74 10/05/22 20:40 108 H 10/05/22 22:49 37.2 C 79 20 128/57 L 91 10/05/22 21:07 36.6 C 95 H 20 135/64 94 10/05/22 20:36 91 10/05/22 20:35 135/64 10/05/22 20:19 88 20 10/05/22 20:00 85 23 92 10/05/22 20:00 146/67 H 10/05/22 20:20 O2 Del Method O2 Flow Rate 10/06/22 07:37 Nasal Cannula 2 10/06/22 05:39 Room Air 10/06/22 03:09 Room Air 10/05/22 23:00 10/05/22 20:40 10/05/22 22:49 Room Air 10/05/22 21:07 Room Air 10/05/22 20:36 10/05/22 20:35 10/05/22 20:19 10/05/22 20:00 10/05/22 20:00 10/05/22 20:20 Room Air Laboratory Results 10/06/22 10/06/22 10/06/22 Range/Units 07:14 06:43 04:45 WBC (4.8-10.8) K/ul RBC (4.70-6.10) M/uL Hgb (14.0-18.0) g/dl Hct (42.0-52.0) % MCV (80.0-100.0) fL MCH (25.0-34.0) pg MCHC (32.0-36.0) g/dL RDW Std Deviation (36.4-46.3) fL RDW Coeff of Carola (11.5-14.5) % Plt Count (130-400) K/uL MPV (9.4-12.4) fL Immature Gran % (Auto) % Neut % (Auto) % Lymph % (Auto) % [place] % (Auto) % Eos % (Auto) % Baso % (Auto) % Neut # (Auto) (1.40-6.50) K/uL Lymph # (Auto) (1.2-3.4) K/uL [place] # (Auto) (0.11-0.59) K/uL Eos # (Auto) (0-0.50) K/uL Baso # (Auto) (0-0.2) K/uL Immature Gran # (Auto) (0.01-0.20) K/uL Platelet Estimate (Normal) Ovalocytes Acanthocytes (Spur) PT (9.0-12.0) Seconds INR (0.9-1.1) APTT (21.0-31.0) Seconds PTT Ratio VBG pH (7.36-7.41) VBG pCO2 (38-50) mmHg VBG pO2 mmHg VBG HCO3 mmol/L VBG O2 Saturation % VBG Base Excess mEq/L Sodium (136-145) mmol/L Potassium (3.5-5.1) mmol/L Chloride (98-107) mmol/L Carbon Dioxide (21-32) mmol/L Anion Gap (3-11) BUN (6-23) mg/dl Creatinine (0.6-1.4) mg/dl Est Cr Clr Drug Dosing ml/min Est GFR ( Amer) ml/min Est GFR (Non-Af Amer) ml/min BUN/Creatinine Ratio (10-20) Glucose (70-99(Fasting)) mg/dl POC Glucose 179 H 172 H 166 H (70-99) mg/dl Uric Acid (2.6-7.2) mg/dl Calcium (8.6-10.3) mg/dl Phosphorus (2.5-4.9) mg/dl Magnesium (1.7-2.4) mg/dl Total Bilirubin (0.2-1.0) mg/dl AST (13-39) U/L ALT (7-52) U/L Alkaline Phosphatase (34-104) U/L Troponin I High Sens (0-20) pg/ml Total Protein (6.0-8.3) gm/dl Albumin (3.4-5.0) gm/dl Globulin (2.5-4.0) gm/dl Albumin/Globulin Ratio (0.9-2) Lipase (11-82) U/L Procalcitonin (0-0.5) ng/ml SARS-CoV-2, RNA, NAAT (NEGATIVE) Blood Type Antibody Screen Crossmatch 10/06/22 10/06/22 10/06/22 Range/Units 04:35 04:35 04:35 WBC 0.80 L* (4.8-10.8) K/ul RBC 1.63 L (4.70-6.10) M/uL Hgb 6.0 L* (14.0-18.0) g/dl Hct 16.4 L* (42.0-52.0) % MCV 100.6 H (80.0-100.0) fL MCH 36.8 H (25.0-34.0) pg MCHC 36.6 H (32.0-36.0) g/dL RDW Std Deviation 59.6 H (36.4-46.3) fL RDW Coeff of Carola 16.4 H (11.5-14.5) % Plt Count 28 L* (130-400) K/uL MPV 11.2 (9.4-12.4) fL Immature Gran % (Auto) 1.3 % Neut % (Auto) 32.4 % Lymph % (Auto) 60.0 % [place] % (Auto) 6.3 % Eos % (Auto) 0.0 % Baso % (Auto) 0.0 % Neut # (Auto) 0.26 L* (1.40-6.50) K/uL Lymph # (Auto) 0.48 L (1.2-3.4) K/uL [place]ler # (Auto) 0.05 L (0.11-0.59) K/uL Eos # (Auto) 0.00 (0-0.50) K/uL Baso # (Auto) 0.00 (0-0.2) K/uL Immature Gran # (Auto) 0.01 (0.01-0.20) K/uL Platelet Estimate (Normal) Ovalocytes Acanthocytes (Spur) PT 12.2 H (9.0-12.0) Seconds INR 1.1 (0.9-1.1) APTT 23.1 (21.0-31.0) Seconds PTT Ratio 0.8 VBG pH 7.48 H (7.36-7.41) VBG pCO2 (38-50) mmHg VBG pO2 mmHg VBG HCO3 mmol/L VBG O2 Saturation % VBG Base Excess mEq/L Sodium (136-145) mmol/L Potassium (3.5-5.1) mmol/L Chloride (98-107) mmol/L Carbon Dioxide (21-32) mmol/L Anion Gap (3-11) BUN (6-23) mg/dl Creatinine (0.6-1.4) mg/dl Est Cr Clr Drug Dosing ml/min Est GFR ( Amer) ml/min Est GFR (Non-Af Amer) ml/min BUN/Creatinine Ratio (10-20) Glucose (70-99(Fasting)) mg/dl POC Glucose (70-99) mg/dl Uric Acid (2.6-7.2) mg/dl Calcium (8.6-10.3) mg/dl Phosphorus (2.5-4.9) mg/dl Magnesium (1.7-2.4) mg/dl Total Bilirubin (0.2-1.0) mg/dl AST (13-39) U/L ALT (7-52) U/L Alkaline Phosphatase (34-104) U/L Troponin I High Sens (0-20) pg/ml Total Protein (6.0-8.3) gm/dl Albumin (3.4-5.0) gm/dl Globulin (2.5-4.0) gm/dl Albumin/Globulin Ratio (0.9-2) Lipase (11-82) U/L Procalcitonin (0-0.5) ng/ml SARS-CoV-2, RNA, NAAT (NEGATIVE) Blood Type Antibody Screen Crossmatch 10/06/22 10/06/22 10/06/22 Range/Units 04:35 04:34 04:18 WBC (4.8-10.8) K/ul RBC (4.70-6.10) M/uL Hgb (14.0-18.0) g/dl Hct (42.0-52.0) % MCV (80.0-100.0) fL MCH (25.0-34.0) pg MCHC (32.0-36.0) g/dL RDW Std Deviation (36.4-46.3) fL RDW Coeff of Carola (11.5-14.5) % Plt Count (130-400) K/uL MPV (9.4-12.4) fL Immature Gran % (Auto) % Neut % (Auto) % Lymph % (Auto) % [place] % (Auto) % Eos % (Auto) % Baso % (Auto) % Neut # (Auto) (1.40-6.50) K/uL Lymph # (Auto) (1.2-3.4) K/uL [place] # (Auto) (0.11-0.59) K/uL Eos # (Auto) (0-0.50) K/uL Baso # (Auto) (0-0.2) K/uL Immature Gran # (Auto) (0.01-0.20) K/uL Platelet Estimate (Normal) Ovalocytes Acanthocytes (Spur) PT (9.0-12.0) Seconds INR (0.9-1.1) APTT (21.0-31.0) Seconds PTT Ratio VBG pH (7.36-7.41) VBG pCO2 (38-50) mmHg VBG pO2 mmHg VBG HCO3 mmol/L VBG O2 Saturation % VBG Base Excess mEq/L Sodium 136 (136-145) mmol/L Potassium 3.8 (3.5-5.1) mmol/L Chloride 105 (98-107) mmol/L Carbon Dioxide 23 (21-32) mmol/L Anion Gap 8 (3-11) BUN 28 H (6-23) mg/dl Creatinine 1.04 (0.6-1.4) mg/dl Est Cr Clr Drug Dosing 52.6 ml/min Est GFR ( Amer) 75.0 ml/min Est GFR (Non-Af Amer) 64.7 ml/min BUN/Creatinine Ratio 26.9 H (10-20) Glucose 144 H (70-99(Fasting)) mg/dl POC Glucose 170 H 177 H (70-99) mg/dl Uric Acid 6.7 (2.6-7.2) mg/dl Calcium 8.6 (8.6-10.3) mg/dl Phosphorus 2.8 (2.5-4.9) mg/dl Magnesium 1.8 (1.7-2.4) mg/dl Total Bilirubin (0.2-1.0) mg/dl AST (13-39) U/L ALT (7-52) U/L Alkaline Phosphatase (34-104) U/L Troponin I High Sens (0-20) pg/ml Total Protein (6.0-8.3) gm/dl Albumin (3.4-5.0) gm/dl Globulin (2.5-4.0) gm/dl Albumin/Globulin Ratio (0.9-2) Lipase (11-82) U/L Procalcitonin (0-0.5) ng/ml SARS-CoV-2, RNA, NAAT (NEGATIVE) Blood Type Antibody Screen Crossmatch 10/06/22 10/06/22 10/06/22 Range/Units 02:29 01:49 00:53 WBC (4.8-10.8) K/ul RBC (4.70-6.10) M/uL Hgb (14.0-18.0) g/dl Hct (42.0-52.0) % MCV (80.0-100.0) fL MCH (25.0-34.0) pg MCHC (32.0-36.0) g/dL RDW Std Deviation (36.4-46.3) fL RDW Coeff of Carola (11.5-14.5) % Plt Count (130-400) K/uL MPV (9.4-12.4) fL Immature Gran % (Auto) % Neut % (Auto) % Lymph % (Auto) % [place] % (Auto) % Eos % (Auto) % Baso % (Auto) % Neut # (Auto) (1.40-6.50) K/uL Lymph # (Auto) (1.2-3.4) K/uL Flag[place] # (Auto) (0.11-0.59) K/uL Eos # (Auto) (0-0.50) K/uL Baso # (Auto) (0-0.2) K/uL Immature Gran # (Auto) (0.01-0.20) K/uL Platelet Estimate (Normal) Ovalocytes Acanthocytes (Spur) PT (9.0-12.0) Seconds INR (0.9-1.1) APTT (21.0-31.0) Seconds PTT Ratio VBG pH (7.36-7.41) VBG pCO2 (38-50) mmHg VBG pO2 mmHg VBG HCO3 mmol/L VBG O2 Saturation % VBG Base Excess mEq/L Sodium (136-145) mmol/L Potassium (3.5-5.1) mmol/L Chloride (98-107) mmol/L Carbon Dioxide (21-32) mmol/L Anion Gap (3-11) BUN (6-23) mg/dl Creatinine (0.6-1.4) mg/dl Est Cr Clr Drug Dosing ml/min Est GFR ( Amer) ml/min Est GFR (Non-Af Amer) ml/min BUN/Creatinine Ratio (10-20) Glucose (70-99(Fasting)) mg/dl POC Glucose 183 H 145 H 130 H (70-99) mg/dl Uric Acid (2.6-7.2) mg/dl Calcium (8.6-10.3) mg/dl Phosphorus (2.5-4.9) mg/dl Magnesium (1.7-2.4) mg/dl Total Bilirubin (0.2-1.0) mg/dl AST (13-39) U/L ALT (7-52) U/L Alkaline Phosphatase (34-104) U/L Troponin I High Sens (0-20) pg/ml Total Protein (6.0-8.3) gm/dl Albumin (3.4-5.0) gm/dl Globulin (2.5-4.0) gm/dl Albumin/Globulin Ratio (0.9-2) Lipase (11-82) U/L Procalcitonin (0-0.5) ng/ml SARS-CoV-2, RNA, NAAT (NEGATIVE) Blood Type Antibody Screen Crossmatch 10/06/22 10/06/22 10/06/22 Range/Units 00:38 00:38 00:00 WBC (4.8-10.8) K/ul RBC (4.70-6.10) M/uL Hgb (14.0-18.0) g/dl Hct (42.0-52.0) % MCV (80.0-100.0) fL MCH (25.0-34.0) pg MCHC (32.0-36.0) g/dL RDW Std Deviation (36.4-46.3) fL RDW Coeff of Carola (11.5-14.5) % Plt Count (130-400) K/uL MPV (9.4-12.4) fL Immature Gran % (Auto) % Neut % (Auto) % Lymph % (Auto) % [place] % (Auto) % Eos % (Auto) % Baso % (Auto) % Neut # (Auto) (1.40-6.50) K/uL Lymph # (Auto) (1.2-3.4) K/uL [place] # (Auto) (0.11-0.59) K/uL Eos # (Auto) (0-0.50) K/uL Baso # (Auto) (0-0.2) K/uL Immature Gran # (Auto) (0.01-0.20) K/uL Platelet Estimate (Normal) Ovalocytes Acanthocytes (Spur) PT (9.0-12.0) Seconds INR (0.9-1.1) APTT (21.0-31.0) Seconds PTT Ratio VBG pH 7.46 H (7.36-7.41) VBG pCO2 (38-50) mmHg VBG pO2 mmHg VBG HCO3 mmol/L VBG O2 Saturation % VBG Base Excess mEq/L Sodium 137 (136-145) mmol/L Potassium 3.5 (3.5-5.1) mmol/L Chloride 103 (98-107) mmol/L Carbon Dioxide 24 (21-32) mmol/L Anion Gap 10 (3-11) BUN 30 H (6-23) mg/dl Creatinine 1.11 (0.6-1.4) mg/dl Est Cr Clr Drug Dosing 49.3 ml/min Est GFR ( Amer) 69.3 ml/min Est GFR (Non-Af Amer) 59.8 ml/min BUN/Creatinine Ratio 27.0 H (10-20) Glucose 115 H (70-99(Fasting)) mg/dl POC Glucose 132 H (70-99) mg/dl Uric Acid (2.6-7.2) mg/dl Calcium 8.8 (8.6-10.3) mg/dl Phosphorus 3.1 (2.5-4.9) mg/dl Magnesium 1.9 (1.7-2.4) mg/dl Total Bilirubin (0.2-1.0) mg/dl AST (13-39) U/L ALT (7-52) U/L Alkaline Phosphatase (34-104) U/L Troponin I High Sens (0-20) pg/ml Total Protein (6.0-8.3) gm/dl Albumin (3.4-5.0) gm/dl Globulin (2.5-4.0) gm/dl Albumin/Globulin Ratio (0.9-2) Lipase (11-82) U/L Procalcitonin (0-0.5) ng/ml SARS-CoV-2, RNA, NAAT (NEGATIVE) Blood Type Antibody Screen Crossmatch 10/05/22 10/05/22 10/05/22 Range/Units 22:46 21:39 21:39 WBC (4.8-10.8) K/ul RBC (4.70-6.10) M/uL Hgb (14.0-18.0) g/dl Hct (42.0-52.0) % MCV (80.0-100.0) fL MCH (25.0-34.0) pg MCHC (32.0-36.0) g/dL RDW Std Deviation (36.4-46.3) fL RDW Coeff of Carola (11.5-14.5) % Plt Count (130-400) K/uL MPV (9.4-12.4) fL Immature Gran % (Auto) % Neut % (Auto) % Lymph % (Auto) % [place] % (Auto) % Eos % (Auto) % Baso % (Auto) % Neut # (Auto) (1.40-6.50) K/uL Lymph # (Auto) (1.2-3.4) K/uL [place] # (Auto) (0.11-0.59) K/uL Eos # (Auto) (0-0.50) K/uL Baso # (Auto) (0-0.2) K/uL Immature Gran # (Auto) (0.01-0.20) K/uL Platelet Estimate (Normal) Ovalocytes Acanthocytes (Spur) PT (9.0-12.0) Seconds INR (0.9-1.1) APTT (21.0-31.0) Seconds PTT Ratio VBG pH 7.44 H (7.36-7.41) VBG pCO2 (38-50) mmHg VBG pO2 mmHg VBG HCO3 mmol/L VBG O2 Saturation % VBG Base Excess mEq/L Sodium 137 (136-145) mmol/L Potassium 3.4 L (3.5-5.1) mmol/L Chloride 102 (98-107) mmol/L Carbon Dioxide 22 (21-32) mmol/L Anion Gap 13 H (3-11) BUN 32 H (6-23) mg/dl Creatinine 1.20 (0.6-1.4) mg/dl Est Cr Clr Drug Dosing 45.6 ml/min Est GFR ( Amer) 63.1 ml/min Est GFR (Non-Af Amer) 54.4 ml/min BUN/Creatinine Ratio 26.7 H (10-20) Glucose 168 H (70-99(Fasting)) mg/dl POC Glucose 156 H (70-99) mg/dl Uric Acid (2.6-7.2) mg/dl Calcium 8.8 (8.6-10.3) mg/dl Phosphorus 2.9 (2.5-4.9) mg/dl Magnesium 1.8 (1.7-2.4) mg/dl Total Bilirubin (0.2-1.0) mg/dl AST (13-39) U/L ALT (7-52) U/L Alkaline Phosphatase (34-104) U/L Troponin I High Sens (0-20) pg/ml Total Protein (6.0-8.3) gm/dl Albumin (3.4-5.0) gm/dl Globulin (2.5-4.0) gm/dl Albumin/Globulin Ratio (0.9-2) Lipase (11-82) U/L Procalcitonin (0-0.5) ng/ml SARS-CoV-2, RNA, NAAT (NEGATIVE) Blood Type Antibody Screen Crossmatch 10/05/22 10/05/22 10/05/22 Range/Units 21:37 20:42 19:47 WBC (4.8-10.8) K/ul RBC (4.70-6.10) M/uL Hgb (14.0-18.0) g/dl Hct (42.0-52.0) % MCV (80.0-100.0) fL MCH (25.0-34.0) pg MCHC (32.0-36.0) g/dL RDW Std Deviation (36.4-46.3) fL RDW Coeff of Carola (11.5-14.5) % Plt Count (130-400) K/uL MPV (9.4-12.4) fL Immature Gran % (Auto) % Neut % (Auto) % Lymph % (Auto) % [place] % (Auto) % Eos % (Auto) % Baso % (Auto) % Neut # (Auto) (1.40-6.50) K/uL Lymph # (Auto) (1.2-3.4) K/uL [place] # (Auto) (0.11-0.59) K/uL Eos # (Auto) (0-0.50) K/uL Baso # (Auto) (0-0.2) K/uL Immature Gran # (Auto) (0.01-0.20) K/uL Platelet Estimate (Normal) Ovalocytes Acanthocytes (Spur) PT (9.0-12.0) Seconds INR (0.9-1.1) APTT (21.0-31.0) Seconds PTT Ratio VBG pH (7.36-7.41) VBG pCO2 (38-50) mmHg VBG pO2 mmHg VBG HCO3 mmol/L VBG O2 Saturation % VBG Base Excess mEq/L Sodium (136-145) mmol/L Potassium (3.5-5.1) mmol/L Chloride (98-107) mmol/L Carbon Dioxide (21-32) mmol/L Anion Gap (3-11) BUN (6-23) mg/dl Creatinine (0.6-1.4) mg/dl Est Cr Clr Drug Dosing ml/min Est GFR ( Amer) ml/min Est GFR (Non-Af Amer) ml/min BUN/Creatinine Ratio (10-20) Glucose (70-99(Fasting)) mg/dl POC Glucose 194 H 234 H 273 H (70-99) mg/dl Uric Acid (2.6-7.2) mg/dl Calcium (8.6-10.3) mg/dl Phosphorus (2.5-4.9) mg/dl Magnesium (1.7-2.4) mg/dl Total Bilirubin (0.2-1.0) mg/dl AST (13-39) U/L ALT (7-52) U/L Alkaline Phosphatase (34-104) U/L Troponin I High Sens (0-20) pg/ml Total Protein (6.0-8.3) gm/dl Albumin (3.4-5.0) gm/dl Globulin (2.5-4.0) gm/dl Albumin/Globulin Ratio (0.9-2) Lipase (11-82) U/L Procalcitonin (0-0.5) ng/ml SARS-CoV-2, RNA, NAAT (NEGATIVE) Blood Type Antibody Screen Crossmatch 10/05/22 10/05/22 10/05/22 Range/Units 19:45 18:45 17:43 WBC (4.8-10.8) K/ul RBC (4.70-6.10) M/uL Hgb (14.0-18.0) g/dl Hct (42.0-52.0) % MCV (80.0-100.0) fL MCH (25.0-34.0) pg MCHC (32.0-36.0) g/dL RDW Std Deviation (36.4-46.3) fL RDW Coeff of Carola (11.5-14.5) % Plt Count (130-400) K/uL MPV (9.4-12.4) fL Immature Gran % (Auto) % Neut % (Auto) % Lymph % (Auto) % [place] % (Auto) % Eos % (Auto) % Baso % (Auto) % Neut # (Auto) (1.40-6.50) K/uL Lymph # (Auto) (1.2-3.4) K/uL [place] # (Auto) (0.11-0.59) K/uL Eos # (Auto) (0-0.50) K/uL Baso # (Auto) (0-0.2) K/uL Immature Gran # (Auto) (0.01-0.20) K/uL Platelet Estimate (Normal) Ovalocytes Acanthocytes (Spur) PT (9.0-12.0) Seconds INR (0.9-1.1) APTT (21.0-31.0) Seconds PTT Ratio VBG pH (7.36-7.41) VBG pCO2 (38-50) mmHg VBG pO2 mmHg VBG HCO3 mmol/L VBG O2 Saturation % VBG Base Excess mEq/L Sodium (136-145) mmol/L Potassium (3.5-5.1) mmol/L Chloride (98-107) mmol/L Carbon Dioxide (21-32) mmol/L Anion Gap (3-11) BUN (6-23) mg/dl Creatinine (0.6-1.4) mg/dl Est Cr Clr Drug Dosing ml/min Est GFR ( Amer) ml/min Est GFR (Non-Af Amer) ml/min BUN/Creatinine Ratio (10-20) Glucose (70-99(Fasting)) mg/dl POC Glucose 357 H* 441 H* (70-99) mg/dl Uric Acid (2.6-7.2) mg/dl Calcium (8.6-10.3) mg/dl Phosphorus (2.5-4.9) mg/dl Magnesium (1.7-2.4) mg/dl Total Bilirubin (0.2-1.0) mg/dl AST (13-39) U/L ALT (7-52) U/L Alkaline Phosphatase (34-104) U/L Troponin I High Sens (0-20) pg/ml Total Protein (6.0-8.3) gm/dl Albumin (3.4-5.0) gm/dl Globulin (2.5-4.0) gm/dl Albumin/Globulin Ratio (0.9-2) Lipase (11-82) U/L Procalcitonin 0.08 (0-0.5) ng/ml SARS-CoV-2, RNA, NAAT (NEGATIVE) Blood Type Antibody Screen Crossmatch 10/05/22 10/05/22 10/05/22 Range/Units 17:06 17:01 16:49 WBC (4.8-10.8) K/ul RBC (4.70-6.10) M/uL Hgb (14.0-18.0) g/dl Hct (42.0-52.0) % MCV (80.0-100.0) fL MCH (25.0-34.0) pg MCHC (32.0-36.0) g/dL RDW Std Deviation (36.4-46.3) fL RDW Coeff of Carola (11.5-14.5) % Plt Count (130-400) K/uL MPV (9.4-12.4) fL Immature Gran % (Auto) % Neut % (Auto) % Lymph % (Auto) % [place] % (Auto) % Eos % (Auto) % Baso % (Auto) % Neut # (Auto) (1.40-6.50) K/uL Lymph # (Auto) (1.2-3.4) K/uL [place] # (Auto) (0.11-0.59) K/uL Eos # (Auto) (0-0.50) K/uL Baso # (Auto) (0-0.2) K/uL Immature Gran # (Auto) (0.01-0.20) K/uL Platelet Estimate (Normal) Ovalocytes Acanthocytes (Spur) PT (9.0-12.0) Seconds INR (0.9-1.1) APTT (21.0-31.0) Seconds PTT Ratio VBG pH 7.39 (7.36-7.41) VBG pCO2 35 L (38-50) mmHg VBG pO2 16 mmHg VBG HCO3 21 mmol/L VBG O2 Saturation < 60.0 % VBG Base Excess -3.1 mEq/L Sodium (136-145) mmol/L Potassium (3.5-5.1) mmol/L Chloride (98-107) mmol/L Carbon Dioxide (21-32) mmol/L Anion Gap (3-11) BUN (6-23) mg/dl Creatinine (0.6-1.4) mg/dl Est Cr Clr Drug Dosing ml/min Est GFR ( Amer) ml/min Est GFR (Non-Af Amer) ml/min BUN/Creatinine Ratio (10-20) Glucose (70-99(Fasting)) mg/dl POC Glucose 437 H* (70-99) mg/dl Uric Acid (2.6-7.2) mg/dl Calcium (8.6-10.3) mg/dl Phosphorus (2.5-4.9) mg/dl Magnesium (1.7-2.4) mg/dl Total Bilirubin (0.2-1.0) mg/dl AST (13-39) U/L ALT (7-52) U/L Alkaline Phosphatase (34-104) U/L Troponin I High Sens (0-20) pg/ml Total Protein (6.0-8.3) gm/dl Albumin (3.4-5.0) gm/dl Globulin (2.5-4.0) gm/dl Albumin/Globulin Ratio (0.9-2) Lipase (11-82) U/L Procalcitonin (0-0.5) ng/ml SARS-CoV-2, RNA, NAAT NEGATIVE (NEGATIVE) Blood Type Antibody Screen Crossmatch 10/05/22 10/05/22 10/05/22 Range/Units 16:49 15:24 15:24 WBC (4.8-10.8) K/ul RBC (4.70-6.10) M/uL Hgb (14.0-18.0) g/dl Hct (42.0-52.0) % MCV (80.0-100.0) fL MCH (25.0-34.0) pg MCHC (32.0-36.0) g/dL RDW Std Deviation (36.4-46.3) fL RDW Coeff of Carola (11.5-14.5) % Plt Count (130-400) K/uL MPV (9.4-12.4) fL Immature Gran % (Auto) % Neut % (Auto) % Lymph % (Auto) % [place] % (Auto) % Eos % (Auto) % Baso % (Auto) % Neut # (Auto) (1.40-6.50) K/uL Lymph # (Auto) (1.2-3.4) K/uL [place] # (Auto) (0.11-0.59) K/uL Eos # (Auto) (0-0.50) K/uL Baso # (Auto) (0-0.2) K/uL Immature Gran # (Auto) (0.01-0.20) K/uL Platelet Estimate (Normal) Ovalocytes Acanthocytes (Spur) PT 12.6 H (9.0-12.0) Seconds INR 1.2 H (0.9-1.1) APTT 20.8 L (21.0-31.0) Seconds PTT Ratio 0.7 VBG pH (7.36-7.41) VBG pCO2 (38-50) mmHg VBG pO2 mmHg VBG HCO3 mmol/L VBG O2 Saturation % VBG Base Excess mEq/L Sodium 131 L (136-145) mmol/L Potassium 4.1 (3.5-5.1) mmol/L Chloride 94 L (98-107) mmol/L Carbon Dioxide 19 L (21-32) mmol/L Anion Gap 18 H (3-11) BUN 35 H (6-23) mg/dl Creatinine 1.46 H (0.6-1.4) mg/dl Est Cr Clr Drug Dosing 37.5 ml/min Est GFR ( Amer) 49.8 ml/min Est GFR (Non-Af Amer) 42.9 ml/min BUN/Creatinine Ratio 24.0 H (10-20) Glucose 454 H* (70-99(Fasting)) mg/dl POC Glucose (70-99) mg/dl Uric Acid (2.6-7.2) mg/dl Calcium 9.3 (8.6-10.3) mg/dl Phosphorus (2.5-4.9) mg/dl Magnesium (1.7-2.4) mg/dl Total Bilirubin 1.0 (0.2-1.0) mg/dl AST 11 L (13-39) U/L ALT 12 (7-52) U/L Alkaline Phosphatase 58 (34-104) U/L Troponin I High Sens 13.2 (0-20) pg/ml Total Protein 7.0 (6.0-8.3) gm/dl Albumin 3.8 (3.4-5.0) gm/dl Globulin 3.2 (2.5-4.0) gm/dl Albumin/Globulin Ratio 1.2 (0.9-2) Lipase 47 (11-82) U/L Procalcitonin (0-0.5) ng/ml SARS-CoV-2, RNA, NAAT (NEGATIVE) Blood Type O Positive Antibody Screen NEGATIVE Crossmatch See Detail 10/05/22 10/05/22 Range/Units 15:24 15:05 WBC 1.00 L (4.8-10.8) K/ul RBC 2.14 L (4.70-6.10) M/uL Hgb 7.8 L (14.0-18.0) g/dl Hct 22.0 L (42.0-52.0) % MCV 102.8 H (80.0-100.0) fL MCH 36.4 H (25.0-34.0) pg MCHC 35.5 (32.0-36.0) g/dL RDW Std Deviation 59.0 H (36.4-46.3) fL RDW Coeff of Carola 16.2 H (11.5-14.5) % Plt Count 36 L (130-400) K/uL MPV 11.8 (9.4-12.4) fL Immature Gran % (Auto) 1.0 % Neut % (Auto) 47.0 % Lymph % (Auto) 45.0 % [place] % (Auto) 7.0 % Eos % (Auto) 0.0 % Baso % (Auto) 0.0 % Neut # (Auto) 0.47 L* (1.40-6.50) K/uL Lymph # (Auto) 0.45 L (1.2-3.4) K/uL [place] # (Auto) 0.07 L (0.11-0.59) K/uL Eos # (Auto) 0.00 (0-0.50) K/uL Baso # (Auto) 0.00 (0-0.2) K/uL Immature Gran # (Auto) 0.01 (0.01-0.20) K/uL Platelet Estimate Decreased L (Normal) Ovalocytes 2+ Acanthocytes (Spur) 1+ PT (9.0-12.0) Seconds INR (0.9-1.1) APTT (21.0-31.0) Seconds PTT Ratio VBG pH (7.36-7.41) VBG pCO2 (38-50) mmHg VBG pO2 mmHg VBG HCO3 mmol/L VBG O2 Saturation % VBG Base Excess mEq/L Sodium (136-145) mmol/L Potassium (3.5-5.1) mmol/L Chloride (98-107) mmol/L Carbon Dioxide (21-32) mmol/L Anion Gap (3-11) BUN (6-23) mg/dl Creatinine (0.6-1.4) mg/dl Est Cr Clr Drug Dosing ml/min Est GFR ( Amer) ml/min Est GFR (Non-Af Amer) ml/min BUN/Creatinine Ratio (10-20) Glucose (70-99(Fasting)) mg/dl POC Glucose 453 H* (70-99) mg/dl Uric Acid (2.6-7.2) mg/dl Calcium (8.6-10.3) mg/dl Phosphorus (2.5-4.9) mg/dl Magnesium (1.7-2.4) mg/dl Total Bilirubin (0.2-1.0) mg/dl AST (13-39) U/L ALT (7-52) U/L Alkaline Phosphatase (34-104) U/L Troponin I High Sens (0-20) pg/ml Total Protein (6.0-8.3) gm/dl Albumin (3.4-5.0) gm/dl Globulin (2.5-4.0) gm/dl Albumin/Globulin Ratio (0.9-2) Lipase (11-82) U/L Procalcitonin (0-0.5) ng/ml SARS-CoV-2, RNA, NAAT (NEGATIVE) Blood Type Antibody Screen Crossmatch Diagnostic Findings Chest X-Ray 10/05/22 15:05 SINGLE VIEW CHEST CLINICAL HISTORY: Atypical chest pain FINDINGS: An AP, portable, upright chest radiograph is compared to study dated 09/03/2022. The heart is mildly enlarged noting atherosclerotic calcification of the thoracic aorta. The pulmonary vasculature is noncongested. There is bibasilar scarring/atelectasis. The lungs and pleural spaces are otherwise clear. No pneumothorax is seen. The skeletal structures are osteopenic. The bony thorax is grossly intact. IMPRESSION: Cardiomegaly with no acute cardiopulmonary abnormality identified. ACT 112: Negative or not required by law. Electronically signed by: Ken Gupta M.D. 10/05/2022 4:42 PM PG Care Time/CCT Total # of Minutes Spent Total Time Spent with Patient: Total time spent is greater than 50% in coordination of care (as documented) at patient's floor/unit and/or counseling patient: Coding Level of Care Code 61140 SUB INP/OBS CARE 350MIN Diagnoses DKA (diabetic ketoacidosis) E11.10 Hyperglycemia R73.9 Acute myeloid leukemia C92.00 HTN (hypertension) I10 Uncontrolled diabetes mellitus Hyperlipidemia E78.5 Murmur R01.1
[2022-10-06] MEDS ORDERED: LANTUS PER UNIT CHARGE SC ONE (08:30)
[2022-10-06] MEDS ORDERED: LANTUS PER UNIT CHARGE SC SCH (08:30)
[2022-10-06 09:04] LABS: Calcium 8.5 mg/dl (8.6-10.3); Creatinine Clr Calc Pharmacy 54.8 ml/min; Est GFR (African American) 78.6 ml/min; Est GFR (Non-African American) 67.8 ml/min; Magnesium 1.8 mg/dl (1.7-2.4); Phosphorus 2.8 mg/dl (2.5-4.9); Potassium 3.6 mmol/L (3.5-5.1)
--- NOTE | 2022-10-06 09:21 | Pharmacy Report ---
Pharmacy Glycemic Short Note 2 - Date of Service October 06, 2022 - Glycemic Short BSG Results (Last 24 hours): 10/05/22 10/05/22 10/05/22 15:05 15:24 17:01 Glucose 454 H* POC Glucose 453 H* 437 H* 10/05/22 10/05/22 10/05/22 17:43 18:45 19:47 Glucose POC Glucose 441 H* 357 H* 273 H 10/05/22 10/05/22 10/05/22 20:42 21:37 21:39 Glucose 168 H POC Glucose 234 H 194 H 10/05/22 10/06/22 10/06/22 22:46 00:00 00:38 Glucose 115 H POC Glucose 156 H 132 H 10/06/22 10/06/22 10/06/22 00:53 01:49 02:29 Glucose POC Glucose 130 H 145 H 183 H 10/06/22 10/06/22 10/06/22 04:18 04:34 04:35 Glucose 144 H POC Glucose 177 H 170 H 10/06/22 10/06/22 10/06/22 04:45 06:43 07:14 Glucose POC Glucose 166 H 172 H 179 H 10/06/22 10/06/22 08:27 08:46 Glucose 144 H POC Glucose 152 H OUTPATIENT ANTIDIABETIC REGIMEN: * Lantus 10 units qPM * Metformin * HbA1c 9.2% on 09/24/22 ASSESSMENT: * Akira is an 87 yo M with T2DM and recently diagnosed AML with pancytopenia admitted for hyperglycemia * Not likely HHS - effective osmolality only 287. Not likely DKA - pH was 7.39 on admission and CO2 was 19, although anion gap was elevated to 18 and mixed acid/base disorder cannot be excluded. * Anion gap now normalized this AM and pH is now actually elevated to 7.48. Discussed with Nicolsaa DUPONT to transition off insulin drip * Insulin drip running at lower rate of 2.9 units/hr. Dextrose-containing IVF was just stopped this AM in anticipation of transition. * No prior inpatient data to help guide insulin dosing. Will utilize weight- based moderate stress Novolog and a low-dose Lantus (although slightly higher than home dose x1 today). PLAN FOR INPATIENT GLYCEMIC CONTROL: * Hold outpatient oral diabetes medications * Basal insulin * Lantus 16 units SQ x1 - administered at 1155 * Discontinue insulin drip 6 hours after Lantus (@1800), or as soon as 1500 if insulin drip notes to hold infusion * Bolus insulin * NovoLog per scale ACHS or Q6hrs while NPO. Two overnight checks tonight as well. * Goal Range: Low 110 mg/dL - High 140 mg/dL * Correction Factor: 30 mg/dL/unit * Nutritional / Prandial insulin per carb ratio of 1 unit per 10 grams CHO consumed
[2022-10-06] MEDS ORDERED: FUROSEMIDE 40 MG/4 ML VIAL IV ONE (09:43)
[2022-10-06] MEDS: MAGNESIUM OXIDE 400 MG TAB PO SCH (10:38)
[2022-10-06] MEDS: CYANOCOBALAMIN (B-12) 500 MCG TABLET PO SCH (10:38)
[2022-10-06] MEDS: amLODIPine BESYLATE 5 MG TAB PO SCH (10:39)
[2022-10-06] MEDS: ATORVASTATIN 20 MG TAB PO SCH (10:39)
[2022-10-06] MEDS: INSULIN ASPART PER UNIT CHARGE SC SCH ×2 (11:26→21:23)
[2022-10-06] MEDS ORDERED: INSULIN ASPART PER UNIT CHARGE SC ONE ×2 (11:30→16:30)
--- NOTE | 2022-10-06 15:18 | XCELERA ---
[id number]
[2022-10-06] MEDS ORDERED: INSULIN ASPART PER UNIT CHARGE SC SCH (16:30)
[2022-10-06 16:52] LABS: BUN Creatinine Ratio 19.8 (10-20); Creatinine Clr Calc Pharmacy 51.7 ml/min; Est GFR (African American) 73.3 ml/min; Est GFR (Non-African American) 63.2 ml/min; Magnesium 1.8 mg/dl (1.7-2.4); Potassium 3.9 mmol/L (3.5-5.1)
[2022-10-06 17:19] LABS: Hematocrit (blood only) 28.1 % (42.0-52.0); Hemoglobin 10.4 g/dl (14.0-18.0); Mean Corpuscular Hemoglobin 35.1 pg (25.0-34.0); Mean Corpuscular Volume 94.9 fL (80.0-100.0); Mean Platelet Volume 10.5 fL (9.4-12.4); Platelet Count 28 K/uL (130-400); RDW Coefficient of Variation 17.1 % (11.5-14.5); Red Blood Count 2.96 M/uL (4.70-6.10); White Blood Count 1.03 K/ul (4.8-10.8)
[2022-10-07] MEDS: INSULIN ASPART PER UNIT CHARGE SC SCH ×6 (00:05→20:36)
[2022-10-07] MEDS ORDERED: HYDROCORTISONE SOD SUCCINATE 100 MG/2 ML VIAL IV PRN (06:00)
[2022-10-07] MEDS ORDERED: EPINEPHrine INJ 1 MG/ML AMP IM PRN (06:00)
--- NOTE | 2022-10-07 06:40 | Consultation ---
Date of Consultation October 07, 2022 Assessment & Plan (1) Acute myeloid leukemia: While at first his pancytopenia seems potentially related to significant B12 deficiency, and at that time we avoided bone marrow aspiration and biopsy because it may be hard to morphologically distinguish between the severe megal oblastic changes that B12 deficiency causes and an acute leukemia, the persistent and if anything worsening pancytopenia despite adequate supplementation led to a diagnostic marrow which is consistent with AML We have not yet specifically stratify the make AML molecularly based on molecular review but for an 87-year-old, practically that may not dramatically impact on upfront therapy. He is not a candidate for traditional high-dose induction nor for allogenic transplantation. While he might be a candidate for investigational treatments, the most common "standard" approach and the patient desiring treatment would be with azacitidine/venetoclax. Already profoundly pancytopenic and becoming more transfusion dependent, delaying the initiation of treatment will only extend his period of vul nerability to infection, bleeding, and further deterioration. With him in the hospital anyway for stabilization of his diabetes, this is an opportune time to start the azacitidine and assess for any acute issues of tumor lysis so that is unlikely without more significant peripheral circulating blast cells and with only single agent azacitidine to start. Plan will be to start that today watching closely for tumor lysis and continuing to watch for any further exacerbation of his diabetes. If he remains stable over the first 48 to 72 hours would move towards discharge with a transition to outpatient therapy. He has a provisional appointment with the [place] hematology team as an outpatient on Tuesday and that will be an opportunity to review and affirm our treatment plan going forward. We will be submitting paperwork to get approval for venetoclax and would anticipate adding that him at a later time. Azacitidine will be given at 75 mg per metered squared daily for 7 days subcutaneously. That can be transition to outpatient and could tolerate a 1 to 2-day interruption if necessary during the over the weekend transition. This will be repeated every 28 days. Venetoclax will be added with doses to be determined by his fungal prophylaxis ongoing. Supportive therapy will be with allopurinol which started yesterday and close monitoring for tumor lysis syndrome in the first 48 hours. Allopurinol will continue only for 1 week and then stop if his situation is stable. He should continue with irradiated transfusion support, red cells for hemoglobin is less than 7.5 g/dL and platelets for counts less than 10,000 though if there is any bleeding we would have to raise the platelet threshold. There would not be a role for myeloid growth factors given preemptively in this particular setting. To avoid excessive confusion of any possible drug reactions in the first 24 hours we will defer the start of antibiotic prophylaxis until tomorrow but anticipate a combination of acyclovir, fluconazole, and levofloxacin. He is neutropenic and any episodes of fever should be approached as neutropenic fever I spoke extensively with the patient his, his , and his extended family last evening. I generated a brief review as the patient AVS which is archived in the [facility] EMR. I supplied them with up-to-date printouts on azacitidine and venetoclax for review. Starting them and then confirmed this morning with the patient CONFIRMATION OF CONSENT 1. We discussed that s/he is diagnosed with AML and that our proposed treatment program will be azacitidine starting in the hospital. Consent has been focused on that for now but we have discussed that there will be the additional institution of venetoclax pending confirmation from the [place] team at which point we will expand the consent process. 2. We discussed that the intent of this treatment is to achieve and sustain remission as best as possible. We have specifically discussed that this approach is not considered a "curative" but that we can achieve extended control in a subset of patients though not in all. 3. We discussed that this treatment program can be associated with toxicities including: Allergic reactions, organ toxicities to the liver, lungs, and other organs. We discussed in particular that this chemotherapy can be associated with low blood counts which can lead to threatening bleeding and/or infection and have emphasized the emergent need to notify us for temperature elevations or unusual bruising or bleeding. We discussed that there may be other toxicities and side effects that are not so easily anticipated and that s/he should be in touch with us quickly for any changes in clinical status. We have indicated that we cannot be assured of the degree or durability of his/her response. 4. We discussed that alternative approaches to treatment could include: no treatment but with the risk of further progression of the condition, experimental treatments. We have offered second opinion and in fact have already arranged for review with the [place] leukemia team currently scheduled for 10/11/2022. 5. Patient has been given additional educational materials and online websites (see 10/06/2022 AVS in [facility] record) that can give additional information about the disease and the planned treatment. Patient and his family have had an opportunity to ask questions and I have answered all questions to the best my ability. I have emphasized the continuous availability of staff day and night to immediately discuss any changes in status. 6. We have completed a formal discussion of informed consent and a signed document of informed consent has been placed in the medical record. 7. We have emphasized that s/he can withdraw his/her consent and stop treatment at any time and for any reason of his/her choosing I have particularly reemphasized that there can be a continuous reassessment of our treatment plan and his own consent and that at any time and for any reason he can stop the process for review. As well I have indicated that if we see unexpected toxicities we will suspend the process ourselves and review. (2) History of prostate cancer: Prostate cancer 15 years ago with an apparently aggressive presentation but with no specific signs of recurrence. PSAs are undetectable. We have an alternate explanation for his pancytopenia and the acute myeloid leukemia (3) Vitamin B12 deficiency: He did present with B12 deficiency which can sometimes morphologically manifest as a picture that looks like acute leukemia but with 4 weeks of supplementation and documented normal range values within 1 week after initial doses, that should be no longer impacting upon his amount of wheezes to this degree. Nevertheless, supplementation should continue and at some point we may want to explore further what play behind the evolution of B12 deficiency in the first place Plan To start azacitidine with support medications and monitoring as detailed above We will need to continue B12 supplementation As soon as his diabetes is stabilized and we had a chance to monitor for the first 48 hours of treatment, can consider discharge with close outpatient follow-up Should aggressively approaches neutropenic fever for any fever spike or suggestions of threatening infection History of Present Illness Reason for Consultation: Patient with newly diagnosed AML and uncontrolled diabetes, admitted for stabilization of the latter but in whom we will be initiating treatment for the former Attending Physician: Douglas Corbin MD History of Present Illness Delightful and generally previously healthy 87-year-old gentleman who had normal baseline CBC in May,, relatively stable CBC in June 2022 though with signs of change with a mildly decreased white blood cell count and evolving macrocytosis. He developed more acute weakness and lightheadedness and was seen in the emergency department 09/03/2022 with more marked pancytopenia and worsening macrocytosis. B12 level was only 126 and he was started on B12 supplementation with an initial parenteral dose and then subsequent oral therapy. I met him on 09/17/2022 at which point he has blood counts were remaining relatively level without improvement but without further major deterioration. We reinstituted parenteral B12 therapy that we noted that his B12 was well in the normal range at that time. He unfortunately has remained pancytopenic to the point of requiring transfusion and without improvement. After 2 weeks of no further progress Bulmer aspiration biopsy was performed 10/01/2022. Results came back on 10/04/2022 showing acute myeloid leukemia. In the office on 10/05/2022 he remained profoundly weak and wit h uncontrolled diabetes, was admitted on that basis. With hydration he showed further anemia and required initial transfusion support and with that he does feel somewhat better We do note history of prostate cancer approximately 15 years ago with apparently aggressive presentation but PSA is currently undetectable. Allergies Allergy/AdvReac Type Severity Reaction Status Date / Time No Known Allergies Allergy Verified 10/05/22 18:05 Home Medications Medication Instructions Recorded Confirmed Type aspirin 81 mg tablet,delayed 81 mg PO DAILY 01/05/19 10/05/22 History release metformin 1,000 mg tablet 1,000 mg PO BID #180 tabs 03/19/22 10/05/22 Rx atorvastatin 20 mg tablet 20 mg PO DAILY #90 tabs 04/06/22 10/05/22 Rx cyanocobalamin (vitamin B-12) 1,000 mcg PO DAILY #30 tabs 09/03/22 10/05/22 Rx 1,000 mcg tablet (Vitamin B-12) magnesium hydroxide 400 mg (170 mg 400 mg PO DAILY #60 tabs 09/03/22 10/05/22 Rx magnesium) chewable tablet losartan 50 mg tablet 50 mg PO DAILY #90 tabs 09/07/22 10/05/22 Rx blood sugar diagnostic (OneTouch #100 ea 10/04/22 10/05/22 Rx Ultra Test strips) blood-glucose meter (Blood Glucose #1 ea 10/04/22 10/05/22 Rx Monitoring kit) lancets 33 gauge (BD Ultra Fine #100 ea 10/04/22 10/05/22 Rx Lancets) amlodipine 10 mg tablet 10 mg PO DAILY 10/05/22 10/05/22 History hydrochlorothiazide 12.5 mg tablet 12.5 mg PO QAM 10/05/22 10/05/22 History insulin glargine 100 unit/mL (3 10 unit (0.1 mL) subcut QPM #15 mL 10/05/22 10/05/22 Rx mL) subcutaneous pen (Lantus Solostar U-100 Insulin) pen needle, diabetic, safety 30 #100 ea 10/05/22 10/05/22 Rx gauge x 3/16" (Assure ID Pen Needle) psyllium husk 0.52 gram capsule 0.52 g PO BID 10/05/22 10/05/22 History (Fiber (psyllium husk)) Patient History Medical History (Updated 10/07/22 @ 06:43 by Montana Tay MD) Diabetes Diverticulosis of colon History of prostate cancer Vitamin B12 deficiency Surgical History History of hernia repair Family History Denies family history of Ovarian cancer Prostate cancer Myocardial infarction Breast cancer Colorectal cancer Social History Smoking Status: Never smoker Second Hand Exposure: No; Do You Dip or Chew Tobacco: No; Hx Alcohol Use: No Hx Substance Use: No Preferred Language: Nigerien Communication Ability: Effective Electrician'S Helper Required: No Beliefs That Will Affect Care: None marital status: Current Living Situation: Spouse current occupational status: retired How many Children do You have: 3 Feels Safe at Home: Yes Childhood Exposure to Second-Hand Smoke: No Diet: regular caffeine: Yes (Iced Tea ) Dental Care, Regularly: Yes Physical Activity Frequency: Daily Seatbelt Use: always Sunscreen Use: No Assistive Devices: None Physical Exam Physical Exam: Sleepy but vital signs are stable. He is alert and appropriate with intact medical decision-making. Lungs are clear, cardiac rhythm 0, the abdomen seems benign and his neurologic exam is nonfocal Results & Data Vital Signs (Past 12 Hours) Vital Signs Temp Pulse Pulse Resp BP Pulse Ox O2 Del Method 10/07/22 04:10 156/79 H 10/07/22 03:34 183/90 H 10/07/22 03:14 37.2 C 92 H 18 189/96 H 94 Room Air 10/06/22 22:07 74 10/06/22 23:12 37.1 C 89 20 171/89 H 92 Room Air 10/06/22 19:00 36.6 C 80 18 144/70 H 91 Room Air Laboratory Results Laboratory Results - last 24 hr 10/05/22 10/05/22 10/06/22 15:05 16:49 06:43 WBC RBC Hgb Hct MCV MCH MCHC RDW Std Deviation RDW Coeff of Carola Plt Count MPV VBG pH Sodium Potassium Chloride Carbon Dioxide Anion Gap BUN Creatinine Est Cr Clr Drug Dosing Est GFR ( Amer) Est GFR (Non-Af Amer) BUN/Creatinine Ratio Glucose POC Glucose 453 H* 172 H Calcium Phosphorus Magnesium Blood Type O Positive Antibody Screen NEGATIVE Crossmatch See Detail 10/06/22 10/06/22 10/06/22 07:14 08:27 08:27 WBC RBC Hgb Hct MCV MCH MCHC RDW Std Deviation RDW Coeff of Carola Plt Count MPV VBG pH 7.46 H Sodium 136 Potassium 3.6 Chloride 105 Carbon Dioxide 25 Anion Gap 6 BUN 24 H Creatinine 1.00 Est Cr Clr Drug Dosing 54.8 Est GFR ( Amer) 78.6 Est GFR (Non-Af Amer) 67.8 BUN/Creatinine Ratio 24.0 H Glucose 144 H POC Glucose 179 H Calcium 8.5 L Phosphorus 2.8 Magnesium 1.8 Blood Type Antibody Screen Crossmatch 10/06/22 10/06/22 10/06/22 08:46 10:43 11:50 WBC RBC Hgb Hct MCV MCH MCHC RDW Std Deviation RDW Coeff of Carola Plt Count MPV VBG pH Sodium Potassium Chloride Carbon Dioxide Anion Gap BUN Creatinine Est Cr Clr Drug Dosing Est GFR ( Amer) Est GFR (Non-Af Amer) BUN/Creatinine Ratio Glucose POC Glucose 152 H 226 H 188 H Calcium Phosphorus Magnesium Blood Type Antibody Screen Crossmatch 10/06/22 10/06/22 10/06/22 13:02 16:06 16:06 WBC 1.03 L RBC 2.96 L Hgb 10.4 L D Hct 28.1 L MCV 94.9 D MCH 35.1 H MCHC 37.0 H RDW Std Deviation 58.0 H RDW Coeff of Carola 17.1 H Plt Count 28 L* MPV 10.5 VBG pH Sodium 136 Potassium 3.9 Chloride 104 Carbon Dioxide 24 Anion Gap 8 BUN 21 Creatinine 1.06 Est Cr Clr Drug Dosing 51.7 Est GFR ( Amer) 73.3 Est GFR (Non-Af Amer) 63.2 BUN/Creatinine Ratio 19.8 Glucose 140 H POC Glucose 142 H Calcium 9.0 Phosphorus Magnesium 1.8 Blood Type Antibody Screen Crossmatch 10/06/22 10/06/22 10/07/22 20:40 23:57 04:05 WBC RBC Hgb Hct MCV MCH MCHC RDW Std Deviation RDW Coeff of Carola Plt Count MPV VBG pH Sodium Potassium Chloride Carbon Dioxide Anion Gap BUN Creatinine Est Cr Clr Drug Dosing Est GFR ( Amer) Est GFR (Non-Af Amer) BUN/Creatinine Ratio Glucose POC Glucose 253 H 183 H 217 H Calcium Phosphorus Magnesium Blood Type Antibody Screen Crossmatch Diagnostic Findings Chest X-Ray 10/05/22 15:05 SINGLE VIEW CHEST CLINICAL HISTORY: Atypical chest pain FINDINGS: An AP, portable, upright chest radiograph is compared to study dated 09/03/2022. The heart is mildly enlarged noting atherosclerotic calcification of the thoracic aorta. The pulmonary vasculature is noncongested. There is bibasilar scarring/atelectasis. The lungs and pleural spaces are otherwise clear. No pneumothorax is seen. The skeletal structures are osteopenic. The bony thorax is grossly intact. IMPRESSION: Cardiomegaly with no acute cardiopulmonary abnormality identified. ACT 112: Negative or not required by law. Electronically signed by: Ken Gupta M.D. 10/05/2022 4:42 PM PG Care Time/CCT Total # of Minutes Spent Total Time Spent with Patient: Total time spent is greater than 50% in coordination of care (as documented) at patient's floor/unit and/or counseling patient: Coding Level of Care Code 95299 IN/OBS CONSULT LVL 4,60M History Expanded Problem Focused Exam Expanded Problem Focused Medical Decision Making High Complexity Diagnoses Acute myeloid leukemia C92.00 History of prostate cancer Z85.46 Vitamin B12 deficiency E53.8
--- NOTE | 2022-10-07 07:46 | Hospitalist Progress Note ---
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 Hgb anemia 7-[address] [place] [facility] [place] Does not require acute treatment as patient is not in blast crisis, transfer is declined. Recommend tx for hyperglycemia and hematology consult in AM Heme/onc consulted for today and discussed w/ Dr Tay given hgb down to 6 (no active bleeding other than from IV sites) s/p 2u PRBC, irradiated on 10/06 --> repeat hgb stable at 9.6 B12 prior lows -- continue B12 supplementation 1000mcg Bone marrow specimen drawn 10/01/2022 pending final report. Flow cytometry w/ CD34 positive myeloblasts consistent with acute myeloid leukemia, blasts represented 67% of total cellular component. Patient is afebrile, without leukocytosis, has had no recent infectious symptoms including cough/nausea/vomiting/fever/chills/shortness of breath. Given his underlying neutropenia may not be able to mount an aggressive fever response. Procal not significantly elevated. Blood cultures pending No abx at this time -- defer to heme/onc. No fevers -- if fever/positive cx will need broad spectrum abx Heme/oncology consulted --> planning to start Azacitidine today and scheduled daily. IV team aware and notified. Monitoring repeat BMP/uric acid this afternoon and daily for TLS but per Dr Tay, fairly low chance of occuring. Started on allopurinol 300mg daily Monitor repeat blood counts/labs Continued inpatient stay PT/OT consults Patient has appt [facility] on Tuesday -- goal to treat/monitor and dc over the weekend to enable him to make this appointment (2) DKA (diabetic ketoacidosis): Plan: Type II DM, hyperglycemia, HHS. Acute, severe, unstable. 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 Already given 2.5L NSS in ER (does have murmur, +JVD on exam) -> hold off further IVF as anion gap closed on repeat labs Diet ordered, advanced to AHA/DM II diet Pharmacy consulted, DM educator BSgs improved and stable -- suspect need for once daily insulin at dc and need rx for supplies (3) Hyperglycemia: Plan: as above Now off insulin, no further anion gap BSGs acceptable (4) HTN (hypertension): Plan: w/ hx orthostasis Cr elevated on admit, likely JAYSON/prerenal azotemia Losartan was decreased from 100mg to 50mg 09/26 due to orthostatic symptoms and aspirin held for thrombocytopenia (no hx CAD/MA/CVA) Remains on amlodipine daily Losartan resumed for 10/07 Will hold off HCTZ for now given poor PO intake at baseline --> monitor for need to resume vs decrease dose vs q2d dosing Given lasix 40mg IV x 1 w/ PRBC yesterday and kidney function remains stable ECHO w/ mod , MR noted. Can f/u cards outpatient ([facility]/ [facility]) (5) Uncontrolled diabetes mellitus: Plan: as above (6) Hyperlipidemia: Plan: Continue atorvastatin 20 mg (7) Murmur: Plan: systolic murmur on exam, O2 use prior losartan decreased due to orthostatic symptoms, HCTZ on hold for JAYSON Had received ~2.5L IVF thus far, dc given BSGs improved and diet ordered and further IVF discotninued ECHO w/o significant change and can have outpt f/u PT/OT consulted Plan DVT proph -- chemo not ordered given low plt. continue SCDs starting chemo today, monitor for TLS Admission and Anticipated Discharge Date Admission Date: October 05, 2022 Supervising Physician Co-Signing Physician Notes The patient was not seen by me. The chart was reviewed. Case discussed with BLANCA Sierra. Agree with assessment and plan Subjective evaluated this morning, doing well. breathing improved he stated he actually was up with a gentleman and took a walk in the [place] this morning which went better than he thought. Discussed plans to start chemo today -- orders to be entered for such by Dr Tay, confirmed availability with pharmacy and alerted IV team last night. BSgs stable. Appetite has always been an issue, but supplements provided and to continue these at dc. Discussed monitoring labs w/ starting and possible dc over the weekend to keep his appt on Tuesday at [facility]. Questions/concerns addressed at this time. Physical Exam Physical Exam: General: chronically ill appearing male, sitting up in bed, eating breakfast, NAD, improved energy/color HEENT: head normocephalic, atraumatic, mmm Resp: diminished in the bases but improved, no w/c, on room air SpO2 94% CV: regular rhythm, +SYSTOLIC murmur, S1/S2 appreciated, no pitting edema/calf tenderness, pulses palpable GI: +BS, soft/NT : no montejo, urinal at bedside MSK/Neuro: no focal deficits Psych: AOx3, cooperative with exam Skin: cool, dry Results & Data Results & Data Vital Signs (Past 12 Hours) Vital Signs Temp Pulse Pulse Resp BP Pulse Ox O2 Del Method 10/07/22 07:29 36.5 C 79 18 166/77 H 94 Room Air 10/07/22 04:10 156/79 H 10/07/22 03:34 183/90 H 10/07/22 03:14 37.2 C 92 H 18 189/96 H 94 Room Air 10/06/22 22:07 74 10/06/22 23:12 37.1 C 89 20 171/89 H 92 Room Air Laboratory Results 10/07/22 10/07/22 10/07/22 Range/Units 07:28 06:55 04:05 WBC 0.84 L* (4.8-10.8) K/ul RBC 2.68 L (4.70-6.10) M/uL Hgb 9.6 L (14.0-18.0) g/dl Hct 25.5 L (42.0-52.0) % MCV 95.1 (80.0-100.0) fL MCH 35.8 H (25.0-34.0) pg MCHC 37.6 H (32.0-36.0) g/dL RDW Std Deviation 58.9 H (36.4-46.3) fL RDW Coeff of Carola 17.3 H (11.5-14.5) % Plt Count 27 L* (130-400) K/uL MPV 11.6 (9.4-12.4) fL Neutrophils % (Manual) 36 % Lymphocytes % (Manual) 57 % Monocytes % (Manual) 2 % Blast Cells % (Manual) 5 % Neutrophils # (Manual) 0.30 L (1.40-6.50) K/uL Total Absolute Neuts 0.30 L* (1.4-6.5) K/uL Lymphocytes # (Manual) 0.48 L (1.2-3.4) K/uL Total Abs Lymphocytes 0.48 L (1.2-3.4) K/uL Monocytes # (Manual) 0.02 L (0.11-0.59) K/uL Blast Cells # (Man) 0.04 H (0-0) K/uL Sodium (136-145) mmol/L Potassium (3.5-5.1) mmol/L Chloride (98-107) mmol/L Carbon Dioxide (21-32) mmol/L Anion Gap (3-11) BUN (6-23) mg/dl Creatinine (0.6-1.4) mg/dl Est Cr Clr Drug Dosing ml/min Est GFR ( Amer) ml/min Est GFR (Non-Af Amer) ml/min BUN/Creatinine Ratio (10-20) Glucose (70-99(Fasting)) mg/dl POC Glucose 196 H 217 H (70-99) mg/dl Calcium (8.6-10.3) mg/dl Magnesium (1.7-2.4) mg/dl Blood Type Antibody Screen Crossmatch 10/06/22 10/06/22 10/06/22 Range/Units 23:57 20:40 16:06 WBC (4.8-10.8) K/ul RBC (4.70-6.10) M/uL Hgb (14.0-18.0) g/dl Hct (42.0-52.0) % MCV (80.0-100.0) fL MCH (25.0-34.0) pg MCHC (32.0-36.0) g/dL RDW Std Deviation (36.4-46.3) fL RDW Coeff of Carola (11.5-14.5) % Plt Count (130-400) K/uL MPV (9.4-12.4) fL Neutrophils % (Manual) % Lymphocytes % (Manual) % Monocytes % (Manual) % Blast Cells % (Manual) % Neutrophils # (Manual) (1.40-6.50) K/uL Total Absolute Neuts (1.4-6.5) K/uL Lymphocytes # (Manual) (1.2-3.4) K/uL Total Abs Lymphocytes (1.2-3.4) K/uL Monocytes # (Manual) (0.11-0.59) K/uL Blast Cells # (Man) (0-0) K/uL Sodium 136 (136-145) mmol/L Potassium 3.9 (3.5-5.1) mmol/L Chloride 104 (98-107) mmol/L Carbon Dioxide 24 (21-32) mmol/L Anion Gap 8 (3-11) BUN 21 (6-23) mg/dl Creatinine 1.06 (0.6-1.4) mg/dl Est Cr Clr Drug Dosing 51.7 ml/min Est GFR ( Amer) 73.3 ml/min Est GFR (Non-Af Amer) 63.2 ml/min BUN/Creatinine Ratio 19.8 (10-20) Glucose 140 H (70-99(Fasting)) mg/dl POC Glucose 183 H 253 H (70-99) mg/dl Calcium 9.0 (8.6-10.3) mg/dl Magnesium 1.8 (1.7-2.4) mg/dl Blood Type Antibody Screen Crossmatch 10/06/22 10/06/22 10/06/22 Range/Units 16:06 13:02 11:50 WBC 1.03 L (4.8-10.8) K/ul RBC 2.96 L (4.70-6.10) M/uL Hgb 10.4 L D (14.0-18.0) g/dl Hct 28.1 L (42.0-52.0) % MCV 94.9 D (80.0-100.0) fL MCH 35.1 H (25.0-34.0) pg MCHC 37.0 H (32.0-36.0) g/dL RDW Std Deviation 58.0 H (36.4-46.3) fL RDW Coeff of Carola 17.1 H (11.5-14.5) % Plt Count 28 L* (130-400) K/uL MPV 10.5 (9.4-12.4) fL Neutrophils % (Manual) % Lymphocytes % (Manual) % Monocytes % (Manual) % Blast Cells % (Manual) % Neutrophils # (Manual) (1.40-6.50) K/uL Total Absolute Neuts (1.4-6.5) K/uL Lymphocytes # (Manual) (1.2-3.4) K/uL Total Abs Lymphocytes (1.2-3.4) K/uL Monocytes # (Manual) (0.11-0.59) K/uL Blast Cells # (Man) (0-0) K/uL Sodium (136-145) mmol/L Potassium (3.5-5.1) mmol/L Chloride (98-107) mmol/L Carbon Dioxide (21-32) mmol/L Anion Gap (3-11) BUN (6-23) mg/dl Creatinine (0.6-1.4) mg/dl Est Cr Clr Drug Dosing ml/min Est GFR ( Amer) ml/min Est GFR (Non-Af Amer) ml/min BUN/Creatinine Ratio (10-20) Glucose (70-99(Fasting)) mg/dl POC Glucose 142 H 188 H (70-99) mg/dl Calcium (8.6-10.3) mg/dl Magnesium (1.7-2.4) mg/dl Blood Type Antibody Screen Crossmatch 10/05/22 Range/Units 16:49 WBC (4.8-10.8) K/ul RBC (4.70-6.10) M/uL Hgb (14.0-18.0) g/dl Hct (42.0-52.0) % MCV (80.0-100.0) fL MCH (25.0-34.0) pg MCHC (32.0-36.0) g/dL RDW Std Deviation (36.4-46.3) fL RDW Coeff of Carola (11.5-14.5) % Plt Count (130-400) K/uL MPV (9.4-12.4) fL Neutrophils % (Manual) % Lymphocytes % (Manual) % Monocytes % (Manual) % Blast Cells % (Manual) % Neutrophils # (Manual) (1.40-6.50) K/uL Total Absolute Neuts (1.4-6.5) K/uL Lymphocytes # (Manual) (1.2-3.4) K/uL Total Abs Lymphocytes (1.2-3.4) K/uL Monocytes # (Manual) (0.11-0.59) K/uL Blast Cells # (Man) (0-0) K/uL Sodium (136-145) mmol/L Potassium (3.5-5.1) mmol/L Chloride (98-107) mmol/L Carbon Dioxide (21-32) mmol/L Anion Gap (3-11) BUN (6-23) mg/dl Creatinine (0.6-1.4) mg/dl Est Cr Clr Drug Dosing ml/min Est GFR ( Amer) ml/min Est GFR (Non-Af Amer) ml/min BUN/Creatinine Ratio (10-20) Glucose (70-99(Fasting)) mg/dl POC Glucose (70-99) mg/dl Calcium (8.6-10.3) mg/dl Magnesium (1.7-2.4) mg/dl Blood Type O Positive Antibody Screen NEGATIVE Crossmatch See Detail PG Care Time/CCT Total # of Minutes Spent Total Time Spent with Patient: Total time spent is greater than 50% in coordination of care (as documented) at patient's floor/unit and/or counseling patient: Coding Level of Care Code 40793 SUB INP/OBS CARE 3/50MIN Diagnoses 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
[2022-10-07] MEDS: INSULIN REGULAR 250 UNITS in SODIUM CHLORIDE 0.9% 247.5 ML IV SCH (07:51)
[2022-10-07] MEDS ORDERED: LANTUS PER UNIT CHARGE SC ONE ×2 (08:00→21:00)
[2022-10-07 08:19] LABS: Hematocrit (blood only) 25.5 % (42.0-52.0); Hemoglobin 9.6 g/dl (14.0-18.0); Mean Corpuscular Hemoglobin 35.8 pg (25.0-34.0); Mean Corpuscular Hgb Conc 37.6 g/dL (32.0-36.0); Mean Corpuscular Volume 95.1 fL (80.0-100.0); RDW Coefficient of Variation 17.3 % (11.5-14.5); RDW Standard Deviation 58.9 fL (36.4-46.3); Red Blood Count 2.68 M/uL (4.70-6.10)
[2022-10-07 08:25] LABS: ALC (manual) 0.48 K/uL (1.2-3.4); Blast # (manual) 0.04 K/uL (0-0); Blast Cells % (manual) 5 %; Lymphocytes # (manual) 0.48 K/uL (1.2-3.4); Lymphocytes % (manual) 57 %; Mean Platelet Volume 11.6 fL (9.4-12.4); Monocytes # (manual) 0.02 K/uL (0.11-0.59); Monocytes % (manual) 2 %; Neutrophils % (manual) 36 %; Platelet Count 27 K/uL (130-400); White Blood Count 0.84 K/ul (4.8-10.8)
[2022-10-07] MEDS: LOSARTAN POTASSIUM 50 MG TAB PO SCH (08:50)
[2022-10-07] MEDS: allopurinoL 300 MG TAB PO SCH (08:50)
[2022-10-07] MEDS: amLODIPine BESYLATE 5 MG TAB PO SCH (08:56)
[2022-10-07] MEDS: CYANOCOBALAMIN (B-12) 500 MCG TABLET PO SCH (08:56)
[2022-10-07] MEDS: ATORVASTATIN 20 MG TAB PO SCH (08:56)
[2022-10-07] MEDS: MAGNESIUM OXIDE 400 MG TAB PO SCH (08:56)
--- NOTE | 2022-10-07 11:22 | Pharmacy Report ---
Pharmacy Glycemic Short Note 2 - Date of Service October 07, 2022 - Glycemic Short BSG Results (Last 24 hours): 10/06/22 10/06/22 10/06/22 11:50 13:02 16:06 Glucose 140 H POC Glucose 188 H 142 H 10/06/22 10/06/22 10/07/22 20:40 23:57 04:05 Glucose POC Glucose 253 H 183 H 217 H 10/07/22 10/07/22 07:28 11:09 Glucose POC Glucose 196 H 250 H OUTPATIENT ANTIDIABETIC REGIMEN: * Lantus 10 units qPM * Metformin * HbA1c 9.2% on 09/24/22 ASSESSMENT: 10/07 * Inpatient chemo to start today - uncertain if that will affect appetite / CHO intake * AM fasting BSG above goal range - will increase Lantus and also add in a scale for this evening if BSG's remain >180 mg/dL * Post-prandial elevations noted yesterday - will tighten to almost a weight- based severe stress estimate. Hesitant to tighten further 2nd chemo starting today. 10/06 * Akira is an 87 yo M with T2DM and recently diagnosed AML with pancytopenia admitted for hyperglycemia * Not likely HHS - effective osmolality only 287. Not likely DKA - pH was 7.39 on admission and CO2 was 19, although anion gap was elevated to 18 and mixed acid/base disorder cannot be excluded. * Anion gap now normalized this AM and pH is now actually elevated to 7.48. Discussed with Nicolasa DUPONT to transition off insulin drip * Insulin drip running at lower rate of 2.9 units/hr. Dextrose-containing IVF was just stopped this AM in anticipation of transition. * No prior inpatient data to help guide insulin dosing. Will utilize weight- based moderate stress Novolog and a low-dose Lantus (although slightly higher than home dose x1 today). PLAN FOR INPATIENT GLYCEMIC CONTROL: * Hold outpatient oral diabetes medications * Basal insulin * Lantus 24 units SQ x1 this AM, with an additional 5 units tonight if BSG > 180 mg/dL * Bolus insulin * NovoLog per scale ACHS or Q6hrs while NPO. Two overnight checks tonight as well. * Goal Range: Low 110 mg/dL - High 140 mg/dL * Correction Factor: 25 mg/dL/unit * Nutritional / Prandial insulin per carb ratio of 1 unit per 8 grams CHO consumed
[2022-10-07] MEDS ORDERED: diphenhydrAMINE 50 MG/ML VIAL IV PRN (11:49)
[2022-10-07] MEDS ORDERED: FAMOTIDINE 20MG/5ML IV PUSH IV PRN (11:52)
[2022-10-07] MEDS ORDERED: methylPREDNISolone 125 MG/2 ML VIAL IV PRN (11:52)
[2022-10-07] MEDS: ONDANSETRON 8MG OD TAB PO SCH (14:24)
[2022-10-07] MEDS: AZACITIDINE SQ SCH ×3 (14:39→18:00)
[2022-10-07 19:26] LABS: BUN Creatinine Ratio 17.9 (10-20); Calcium 8.4 mg/dl (8.6-10.3); Creatinine Clr Calc Pharmacy 44.5 ml/min; Est GFR (African American) 61.2 ml/min; Est GFR (Non-African American) 52.8 ml/min; Potassium 3.8 mmol/L (3.5-5.1); Uric Acid 5.9 mg/dl (2.6-7.2)
[2022-10-08] MEDS ORDERED: INSULIN ASPART PER UNIT CHARGE SC ONE (02:00)
[2022-10-08 07:52] LABS: Hematocrit (blood only) 24.4 % (42.0-52.0); Hemoglobin 8.9 g/dl (14.0-18.0); Mean Corpuscular Hemoglobin 35.2 pg (25.0-34.0); Mean Corpuscular Hgb Conc 36.5 g/dL (32.0-36.0); Mean Corpuscular Volume 96.4 fL (80.0-100.0); Mean Platelet Volume 11.5 fL (9.4-12.4); Platelet Count 25 K/uL (130-400); RDW Coefficient of Variation 16.9 % (11.5-14.5); RDW Standard Deviation 58.2 fL (36.4-46.3); Red Blood Count 2.53 M/uL (4.70-6.10); White Blood Count 0.76 K/ul (4.8-10.8)
--- NOTE | 2022-10-08 07:52 | Hospitalist Progress Note ---
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 Hgb anemia 7-[address] Tillman at [facility] [place]. Does not require acute treatment as patient is not in blast crisis, transfer is declined. Recommend tx for hyperglycemia and hematology consult in AM Heme/onc consulted for today and discussed w/ Dr Tay given hgb down to 6 (no active bleeding other than from IV sites) s/p 2u PRBC, irradiated on 10/06 --> repeat hgb stable at 8.9. NO BLEEDING B12 prior lows -- continue B12 supplementation 1000mcg Bone marrow specimen drawn 10/01/2022 pending final report. Flow cytometry w/ CD34 positive myeloblasts consistent with acute myeloid leukemia, blasts represented 67% of total cellular component. Patient is afebrile, without leukocytosis, has had no recent infectious symptoms including cough/nausea/vomiting/fever/chills/shortness of breath. Given his underlying neutropenia may not be able to mount an aggressive fever response. Procal not significantly elevated. Blood cultures pending. No abx at this time -- defer to heme/onc. No fevers -- if fever/positive cx will need broad spectrum abx Heme/oncology consulted Started azacitidine 10/07, scheduled daily. Monitoring BMP/Uric acid for TLS. No evidence at present Continue allopurinol 30mg daily Started prophylaxis w/ Levafloxacin 250mg daily based on renal function, fluconazole 200mg daily. Acyclovir 400mg BID --> will need to be on these medications continued at discharge for prophylaxis. They will continue the azacitidine outpatient once eval JH Lasix 20mg IV x 1 today for +JVD/diminished breath sounds for possible overload. ECHO w/ /MR Possible dc over the weekend -- Tuesday vs Tuesday, TBD based on response Patient has appt [facility] on Tuesday -- goal to treat/monitor and dc over the weekend to enable him to make this appointment PT/OT consults pending (2) DKA (diabetic ketoacidosis): Plan: Type II DM, hyperglycemia, HHS. Acute, severe, unstable. 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 Already given 2.5L NSS in ER (does have murmur, +JVD on exam) -> hold off further IVF as anion gap closed on repeat labs Diet ordered, advanced to AHA/DM II diet Pharmacy consulted, DM educator BSgs improved and stable -- suspect need for once daily insulin at dc and need rx for supplies -- getting lantus 30u this morning, SSI --> continue to monitor needs (3) Hyperglycemia: Plan: as above Now off insulin, no further anion gap BSGs acceptable (4) HTN (hypertension): Plan: w/ hx orthostasis Cr elevated on admit, likely JAYSON/prerenal azotemia Losartan was decreased from 100mg to 50mg 09/26 due to orthostatic symptoms and aspirin held for thrombocytopenia (no hx CAD/MA/CVA) Remains on amlodipine daily Losartan resumed for 10/07 Will hold off HCTZ for now given poor PO intake at baseline --> monitor for need to resume vs decrease dose vs q2d dosing Given lasix 40mg IV x 1 w/ PRBC and kidney function remained stable ECHO w/ mod , MR noted. Dimitry repeat lasix 20mg IV x 1 for today (10/08) Can f/u cards outpatient (follows w/ [facility]) (5) Uncontrolled diabetes mellitus: Plan: as above (6) Hyperlipidemia: Plan: Continue atorvastatin 20 mg (7) Murmur: Plan: systolic murmur on exam, O2 use prior losartan decreased due to orthostatic symptoms, HCTZ on hold for JAYSON Had received ~2.5L IVF thus far, dc given BSGs improved and diet ordered and further IVF discontinued ECHO w/o significant change and can have outpt f/u Plan DVT proph -- chemo not ordered given low plt. continue SCDs Continued inpatient stay -- hoping for d/c this tuesday vs Tuesday TBD pending stability w/ chemo inpatient/any evidence for TLS Admission and Anticipated Discharge Date Admission Date: October 05, 2022 Supervising Physician Co-Signing Physician Notes The patient was not seen by me. The chart was reviewed. Case discussed with BLANCA Sierra. Agree with assessment and plan Subjective eval this morning, doing alright. no bleeding issues. no increased shortness of breath. remaining stable on room air at present. no abdominal pain or nausea but noting no bowel movement since admission. will start bowel regimen. discussed monitoring overnight and possible dc tomorrow vs tuesday. questions/concerns addressed at this time. Physical Exam Physical Exam: General: chronically ill appearing male, sitting up in bed, eating breakfast, NAD HEENT: head normocephalic, atraumatic, mmm Resp: diminished in the bases but improved, no w/c, on room air SpO2 90% CV: regular rhythm, +SYSTOLIC murmur, S1/S2 appreciated, no pitting edema/calf tenderness, pulses palpable GI: +BS, soft/NT : no montejo, urinal at bedside MSK/Neuro: no focal deficits Psych: AOx3, cooperative with exam Skin: cool, dry Results & Data Results & Data Vital Signs (Past 12 Hours) Vital Signs Temp Pulse Pulse Resp BP Pulse Ox O2 Del Method 10/08/22 03:10 37.4 C 80 18 125/69 91 Room Air 10/07/22 23:50 37.4 C 74 20 138/70 90 Room Air 10/07/22 23:38 80 Laboratory Results 10/08/22 10/08/22 10/08/22 Range/Units 07:23 07:17 07:17 WBC 0.76 L* (4.8-10.8) K/ul RBC 2.53 L (4.70-6.10) M/uL Hgb 8.9 L (14.0-18.0) g/dl Hct 24.4 L (42.0-52.0) % MCV 96.4 (80.0-100.0) fL MCH 35.2 H (25.0-34.0) pg MCHC 36.5 H (32.0-36.0) g/dL RDW Std Deviation 58.2 H (36.4-46.3) fL RDW Coeff of Carola 16.9 H (11.5-14.5) % Plt Count 25 L* (130-400) K/uL MPV 11.5 (9.4-12.4) fL Immature Gran % (Auto) 0.0 % Neut % (Auto) 34.2 % Lymph % (Auto) 57.9 % Trigg % (Auto) 7.9 % Eos % (Auto) 0.0 % Baso % (Auto) 0.0 % Neut # (Auto) 0.26 L* (1.40-6.50) K/uL Lymph # (Auto) 0.44 L (1.2-3.4) K/uL Trigg # (Auto) 0.06 L (0.11-0.59) K/uL Eos # (Auto) 0.00 (0-0.50) K/uL Baso # (Auto) 0.00 (0-0.2) K/uL Immature Gran # (Auto) 0.00 L (0.01-0.20) K/uL Polychromasia 1+ Acanthocytes (Spur) 2+ VBG pH 7.44 H (7.36-7.41) Sodium (136-145) mmol/L Potassium (3.5-5.1) mmol/L Chloride (98-107) mmol/L Carbon Dioxide (21-32) mmol/L Anion Gap (3-11) BUN (6-23) mg/dl Creatinine (0.6-1.4) mg/dl Est Cr Clr Drug Dosing ml/min Est GFR ( Amer) ml/min Est GFR (Non-Af Amer) ml/min BUN/Creatinine Ratio (10-20) Glucose (70-99(Fasting)) mg/dl POC Glucose (70-99) mg/dl Uric Acid Calcium (8.6-10.3) mg/dl Phosphorus (2.5-4.9) mg/dl Magnesium (1.7-2.4) mg/dl B-Natriuretic Peptide 136 H (0-100) pg/ml 10/08/22 10/08/22 10/08/22 Range/Units 07:17 07:06 02:23 WBC (4.8-10.8) K/ul RBC (4.70-6.10) M/uL Hgb (14.0-18.0) g/dl Hct (42.0-52.0) % MCV (80.0-100.0) fL MCH (25.0-34.0) pg MCHC (32.0-36.0) g/dL RDW Std Deviation (36.4-46.3) fL RDW Coeff of Carola (11.5-14.5) % Plt Count (130-400) K/uL MPV (9.4-12.4) fL Immature Gran % (Auto) % Neut % (Auto) % Lymph % (Auto) % Trigg % (Auto) % Eos % (Auto) % Baso % (Auto) % Neut # (Auto) (1.40-6.50) K/uL Lymph # (Auto) (1.2-3.4) K/uL Trigg # (Auto) (0.11-0.59) K/uL Eos # (Auto) (0-0.50) K/uL Baso # (Auto) (0-0.2) K/uL Immature Gran # (Auto) (0.01-0.20) K/uL Polychromasia Acanthocytes (Spur) VBG pH (7.36-7.41) Sodium 136 (136-145) mmol/L Potassium 4.3 (3.5-5.1) mmol/L Chloride 104 (98-107) mmol/L Carbon Dioxide 26 (21-32) mmol/L Anion Gap 6 (3-11) BUN 21 (6-23) mg/dl Creatinine 1.24 (0.6-1.4) mg/dl Est Cr Clr Drug Dosing 44.2 ml/min Est GFR ( Amer) 60.6 ml/min Est GFR (Non-Af Amer) 52.3 ml/min BUN/Creatinine Ratio 16.9 (10-20) Glucose 186 H (70-99(Fasting)) mg/dl POC Glucose 192 H 135 H (70-99) mg/dl Uric Acid 6.1 Calcium 8.7 (8.6-10.3) mg/dl Phosphorus 4.1 D (2.5-4.9) mg/dl Magnesium 2.0 (1.7-2.4) mg/dl B-Natriuretic Peptide (0-100) pg/ml 10/07/22 10/07/22 10/07/22 Range/Units 20:13 18:49 18:49 WBC (4.8-10.8) K/ul RBC (4.70-6.10) M/uL Hgb (14.0-18.0) g/dl Hct (42.0-52.0) % MCV (80.0-100.0) fL MCH (25.0-34.0) pg MCHC (32.0-36.0) g/dL RDW Std Deviation (36.4-46.3) fL RDW Coeff of Carola (11.5-14.5) % Plt Count (130-400) K/uL MPV (9.4-12.4) fL Immature Gran % (Auto) % Neut % (Auto) % Lymph % (Auto) % Trigg % (Auto) % Eos % (Auto) % Baso % (Auto) % Neut # (Auto) (1.40-6.50) K/uL Lymph # (Auto) (1.2-3.4) K/uL Trigg # (Auto) (0.11-0.59) K/uL Eos # (Auto) (0-0.50) K/uL Baso # (Auto) (0-0.2) K/uL Immature Gran # (Auto) (0.01-0.20) K/uL Polychromasia Acanthocytes (Spur) VBG pH (7.36-7.41) Sodium 135 L (136-145) mmol/L Potassium 3.8 (3.5-5.1) mmol/L Chloride 102 (98-107) mmol/L Carbon Dioxide 25 (21-32) mmol/L Anion Gap 8 (3-11) BUN 22 (6-23) mg/dl Creatinine 1.23 (0.6-1.4) mg/dl Est Cr Clr Drug Dosing 44.5 ml/min Est GFR ( Amer) 61.2 ml/min Est GFR (Non-Af Amer) 52.8 ml/min BUN/Creatinine Ratio 17.9 (10-20) Glucose 254 H (70-99(Fasting)) mg/dl POC Glucose 227 H (70-99) mg/dl Uric Acid 5.9 Cancelled Calcium 8.4 L (8.6-10.3) mg/dl Phosphorus (2.5-4.9) mg/dl Magnesium (1.7-2.4) mg/dl B-Natriuretic Peptide (0-100) pg/ml 10/07/22 10/07/22 Range/Units 16:30 11:09 WBC (4.8-10.8) K/ul RBC (4.70-6.10) M/uL Hgb (14.0-18.0) g/dl Hct (42.0-52.0) % MCV (80.0-100.0) fL MCH (25.0-34.0) pg MCHC (32.0-36.0) g/dL RDW Std Deviation (36.4-46.3) fL RDW Coeff of Carola (11.5-14.5) % Plt Count (130-400) K/uL MPV (9.4-12.4) fL Immature Gran % (Auto) % Neut % (Auto) % Lymph % (Auto) % Trigg % (Auto) % Eos % (Auto) % Baso % (Auto) % Neut # (Auto) (1.40-6.50) K/uL Lymph # (Auto) (1.2-3.4) K/uL Trigg # (Auto) (0.11-0.59) K/uL Eos # (Auto) (0-0.50) K/uL Baso # (Auto) (0-0.2) K/uL Immature Gran # (Auto) (0.01-0.20) K/uL Polychromasia Acanthocytes (Spur) VBG pH (7.36-7.41) Sodium (136-145) mmol/L Potassium (3.5-5.1) mmol/L Chloride (98-107) mmol/L Carbon Dioxide (21-32) mmol/L Anion Gap (3-11) BUN (6-23) mg/dl Creatinine (0.6-1.4) mg/dl Est Cr Clr Drug Dosing ml/min Est GFR ( Amer) ml/min Est GFR (Non-Af Amer) ml/min BUN/Creatinine Ratio (10-20) Glucose (70-99(Fasting)) mg/dl POC Glucose 170 H 250 H (70-99) mg/dl Uric Acid Calcium (8.6-10.3) mg/dl Phosphorus (2.5-4.9) mg/dl Magnesium (1.7-2.4) mg/dl B-Natriuretic Peptide (0-100) pg/ml PG Care Time/CCT Total # of Minutes Spent Total Time Spent with Patient: Total time spent is greater than 50% in coordination of care (as documented) at patient's floor/unit and/or counseling patient: Coding Level of Care Code 28310 SUB INP/OBS CARE 3/50MIN Diagnoses 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
[2022-10-08] MEDS: INSULIN ASPART PER UNIT CHARGE SC SCH ×4 (07:53→20:50)
[2022-10-08 08:05] LABS: Acanthocytes 2+; Polychromasia 1+
[2022-10-08 08:07] LABS: Lymphocytes # (auto) 0.44 K/uL (1.2-3.4); Lymphocytes % (auto) 57.9 %; Monocytes # (auto) 0.06 K/uL (0.11-0.59); Monocytes % (auto) 7.9 %; Neutrophils # (auto) 0.26 K/uL (1.40-6.50); Neutrophils % (auto) 34.2 %
[2022-10-08] MEDS: LANTUS PER UNIT CHARGE SC SCH (08:10)
[2022-10-08] MEDS: ATORVASTATIN 20 MG TAB PO SCH (08:14)
[2022-10-08] MEDS: CYANOCOBALAMIN (B-12) 500 MCG TABLET PO SCH (08:14)
[2022-10-08] MEDS: MAGNESIUM OXIDE 400 MG TAB PO SCH (08:14)
[2022-10-08] MEDS: allopurinoL 300 MG TAB PO SCH (08:14)
[2022-10-08] MEDS: amLODIPine BESYLATE 5 MG TAB PO SCH (08:14)
[2022-10-08] MEDS: LOSARTAN POTASSIUM 50 MG TAB PO SCH (08:14)
[2022-10-08 08:17] LABS: Calcium 8.7 mg/dl (8.6-10.3); Potassium 4.3 mmol/L (3.5-5.1)
[2022-10-08 08:27] LABS: BUN Creatinine Ratio 16.9 (10-20); Creatinine Clr Calc Pharmacy 44.2 ml/min; Est GFR (African American) 60.6 ml/min; Est GFR (Non-African American) 52.3 ml/min; Phosphorus 4.1 mg/dl (2.5-4.9); Uric Acid 6.1 mg/dl (2.6-7.2)
[2022-10-08] MEDS ORDERED: ACYCLOVIR 400 MG TAB PO ONE (08:40)
[2022-10-08] MEDS: FLUCONAZOLE 100 MG TAB PO SCH (09:29)
[2022-10-08] MEDS ORDERED: FUROSEMIDE INJ 20 MG/2 ML VIAL IV ONE (09:57)
[2022-10-08] MEDS: DOCUSATE SODIUM/SENNA 50/8.6MG TAB PO SCH (10:29)
[2022-10-08] MEDS: levoFLOXacin 250 MG TABLET PO SCH (10:29)
--- NOTE | 2022-10-08 13:49 | Pharmacy Report ---
Pharmacy Glycemic Short Note 2 - Date of Service October 08, 2022 - Glycemic Short BSG Results (Last 24 hours): 10/07/22 10/07/22 10/07/22 16:30 18:49 20:13 Glucose 254 H POC Glucose 170 H 227 H 10/08/22 10/08/22 10/08/22 02:23 07:06 07:17 Glucose 186 H POC Glucose 135 H 192 H 10/08/22 11:10 Glucose POC Glucose 277 H OUTPATIENT ANTIDIABETIC REGIMEN: * Lantus 10 units SC PM * Metformin 1000 mg PO BIDM * HbA1c: 9.2% (09/24/22) ASSESSMENT: 10/08: * Akira received 61 units of insulin yesterday, 29 units basal + 32 units bolus. BSGs were: [phone] mg/dL. * Fasting BSG without much improvement today. Will increase basal by 20% today. * Patient's appetite appears similar despite chemo with limited nausea. * Given postprandial hyperglycemia again with lunch today, tightened CR. CF seemed adequate overnight last night. 10/07: * Inpatient chemo to start today - uncertain if that will affect appetite / CHO intake * AM fasting BSG above goal range - will increase Lantus and also add in a scale for this evening if BSG's remain >180 mg/dL * Post-prandial elevations noted yesterday - will tighten to almost a weight- based severe stress estimate. Hesitant to tighten further 2nd chemo starting today. 10/06: * Akira is an 87 yo M with T2DM and recently diagnosed AML with pancytopenia admitted for hyperglycemia * Not likely HHS - effective osmolality only 287. Not likely DKA - pH was 7.39 on admission and CO2 was 19, although anion gap was elevated to 18 and mixed acid/base disorder cannot be excluded. * Anion gap now normalized this AM and pH is now actually elevated to 7.48. Discussed with Nicolasa DUPONT to transition off insulin drip * Insulin drip running at lower rate of 2.9 units/hr. Dextrose-containing IVF was just stopped this AM in anticipation of transition. * No prior inpatient data to help guide insulin dosing. Will utilize weight- based moderate stress Novolog and a low-dose Lantus (although slightly higher than home dose x1 today). PLAN FOR INPATIENT GLYCEMIC CONTROL: * Hold outpatient oral diabetes medications * Basal insulin * Lantus 30 units SC AM * Lantus 0-5 units SC HS (5 units for BSG > 160 mg/dL) * Bolus insulin * NovoLog per scale ACHS or Q6hrs while NPO. Two overnight checks tonight as well. * Goal Range: Low 110 mg/dL - High 140 mg/dL * Correction Factor: 25 mg/dL/unit * Nutritional / Prandial insulin per carb ratio of 1 unit per 5 grams CHO consumed
[2022-10-08] MEDS: ONDANSETRON 8MG OD TAB PO SCH (14:24)
[2022-10-08] MEDS ORDERED: AZACITIDINE SQ SCH (14:30)
[2022-10-08] MEDS: AZACITIDINE SQ SCH (14:49)
[2022-10-08 18:52] LABS: BUN Creatinine Ratio 16.4 (10-20); Est GFR (African American) 47.4 ml/min; Est GFR (Non-African American) 40.9 ml/min; Potassium 3.8 mmol/L (3.5-5.1); Uric Acid 5.6 mg/dl (2.6-7.2)
[2022-10-08] MEDS ORDERED: SODIUM CHLORIDE 0.9% 500 ML IV SCH (19:00)
[2022-10-08] MEDS: ACYCLOVIR 400 MG TAB PO SCH (20:50)
[2022-10-08] MEDS ORDERED: LANTUS PER UNIT CHARGE SC SCH (21:00)
[2022-10-09 07:08] LABS: Hemoglobin 8.4 g/dl (14.0-18.0); Mean Corpuscular Hemoglobin 35.1 pg (25.0-34.0); Mean Corpuscular Hgb Conc 36.5 g/dL (32.0-36.0); Mean Corpuscular Volume 96.2 fL (80.0-100.0); Mean Platelet Volume 10.8 fL (9.4-12.4); Platelet Count 27 K/uL (130-400); RDW Standard Deviation 55.8 fL (36.4-46.3); Red Blood Count 2.39 M/uL (4.70-6.10); White Blood Count 0.71 K/ul (4.8-10.8)
[2022-10-09 07:11] LABS: BUN Creatinine Ratio 17.3 (10-20); Calcium 8.4 mg/dl (8.6-10.3); Creatinine Clr Calc Pharmacy 43.1 ml/min; Est GFR (African American) 58.9 ml/min; Est GFR (Non-African American) 50.8 ml/min; Phosphorus 3.7 mg/dl (2.5-4.9); Potassium 4.2 mmol/L (3.5-5.1); Uric Acid 5.6 mg/dl (2.6-7.2)
[2022-10-09 07:31] LABS: ALC (manual) 0.41 K/uL (1.2-3.4); ANC (manual) 0.25 K/uL (1.4-6.5); Basophils # (manual) 0.01 K/uL (0-0.2); Basophils % (manual) 2 %; Blast # (manual) 0.02 K/uL (0-0); Blast Cells % (manual) 3 %; Eosinophils # (manual) 0.01 K/uL (0-0.50); Eosinophils % (manual) 1 %; Lymphocytes # (manual) 0.41 K/uL (1.2-3.4); Lymphocytes % (manual) 58 %; Monocytes # (manual) 0.01 K/uL (0.11-0.59); Monocytes % (manual) 1 %; Myelocytes # (manual) 0.01 K/uL (0-0); Myelocytes % (manual) 1 %; Neutrophils # (manual) 0.25 K/uL (1.40-6.50); Neutrophils % (manual) 35 %; Ovalocytes 1+
--- NOTE | 2022-10-09 07:52 | Hospitalist Progress Note ---
Date of Service October 09, 2022 Assessment & Plan Admission and Anticipated Discharge Date Admission Date: October 05, 2022 Results & Data Results & Data Vital Signs (Past 12 Hours) Vital Signs Temp Pulse Pulse Resp BP Pulse Ox O2 Del Method 10/09/22 03:33 37.4 C 68 18 160/80 H 94 Room Air 10/09/22 00:40 77 10/08/22 23:57 37.1 C 74 20 145/74 H 91 Room Air 10/08/22 20:45 Room Air 10/08/22 20:11 37.1 C 78 16 140/68 93 Room Air Laboratory Results 10/09/22 10/09/22 10/09/22 Range/Units 07:14 06:21 06:21 WBC 0.71 L* (4.8-10.8) K/ul RBC 2.39 L (4.70-6.10) M/uL Hgb 8.4 L (14.0-18.0) g/dl Hct 23.0 L (42.0-52.0) % MCV 96.2 (80.0-100.0) fL MCH 35.1 H (25.0-34.0) pg MCHC 36.5 H (32.0-36.0) g/dL RDW Std Deviation 55.8 H (36.4-46.3) fL RDW Coeff of Carola 16.0 H (11.5-14.5) % Plt Count 27 L* (130-400) K/uL MPV 10.8 (9.4-12.4) fL Immature Gran % (Auto) % Neut % (Auto) % Lymph % (Auto) % [place] % (Auto) % Eos % (Auto) % Baso % (Auto) % Neut # (Auto) (1.40-6.50) K/uL Lymph # (Auto) (1.2-3.4) K/uL [place] # (Auto) (0.11-0.59) K/uL Eos # (Auto) (0-0.50) K/uL Baso # (Auto) (0-0.2) K/uL Immature Gran # (Auto) (0.01-0.20) K/uL Neutrophils % (Manual) 35 % Lymphocytes % (Manual) 58 % Monocytes % (Manual) 1 % Eosinophils % (Manual) 1 % Basophils % (Manual) 2 % Myelocytes % (Man) 1 % Blast Cells % (Manual) 3 % Neutrophils # (Manual) 0.25 L (1.40-6.50) K/uL Total Absolute Neuts 0.25 L* (1.4-6.5) K/uL Lymphocytes # (Manual) 0.41 L (1.2-3.4) K/uL Total Abs Lymphocytes 0.41 L (1.2-3.4) K/uL Monocytes # (Manual) 0.01 L (0.11-0.59) K/uL Eosinophils # (Manual) 0.01 (0-0.50) K/uL Basophils # (Manual) 0.01 (0-0.2) K/uL Myelocytes # (Manual) 0.01 H (0-0) K/uL Blast Cells # (Man) 0.02 H (0-0) K/uL Polychromasia Ovalocytes 1+ Acanthocytes (Spur) Sodium 135 L (136-145) mmol/L Potassium 4.2 (3.5-5.1) mmol/L Chloride 104 (98-107) mmol/L Carbon Dioxide 26 (21-32) mmol/L Anion Gap 5 (3-11) BUN 22 (6-23) mg/dl Creatinine 1.27 (0.6-1.4) mg/dl Est Cr Clr Drug Dosing 43.1 ml/min Est GFR ( Amer) 58.9 ml/min Est GFR (Non-Af Amer) 50.8 ml/min BUN/Creatinine Ratio 17.3 (10-20) Glucose 158 H (70-99(Fasting)) mg/dl POC Glucose 178 H (70-99) mg/dl Uric Acid 5.6 (2.6-7.2) mg/dl Calcium 8.4 L (8.6-10.3) mg/dl Phosphorus 3.7 (2.5-4.9) mg/dl Magnesium 2.0 (1.7-2.4) mg/dl B-Natriuretic Peptide (0-100) pg/ml 10/08/22 10/08/22 10/08/22 Range/Units 20:19 18:00 16:07 WBC (4.8-10.8) K/ul RBC (4.70-6.10) M/uL Hgb (14.0-18.0) g/dl Hct (42.0-52.0) % MCV (80.0-100.0) fL MCH (25.0-34.0) pg MCHC (32.0-36.0) g/dL RDW Std Deviation (36.4-46.3) fL RDW Coeff of Carola (11.5-14.5) % Plt Count (130-400) K/uL MPV (9.4-12.4) fL Immature Gran % (Auto) % Neut % (Auto) % Lymph % (Auto) % [place] % (Auto) % Eos % (Auto) % Baso % (Auto) % Neut # (Auto) (1.40-6.50) K/uL Lymph # (Auto) (1.2-3.4) K/uL [place] # (Auto) (0.11-0.59) K/uL Eos # (Auto) (0-0.50) K/uL Baso # (Auto) (0-0.2) K/uL Immature Gran # (Auto) (0.01-0.20) K/uL Neutrophils % (Manual) % Lymphocytes % (Manual) % Monocytes % (Manual) % Eosinophils % (Manual) % Basophils % (Manual) % Myelocytes % (Man) % Blast Cells % (Manual) % Neutrophils # (Manual) (1.40-6.50) K/uL Total Absolute Neuts (1.4-6.5) K/uL Lymphocytes # (Manual) (1.2-3.4) K/uL Total Abs Lymphocytes (1.2-3.4) K/uL Monocytes # (Manual) (0.11-0.59) K/uL Eosinophils # (Manual) (0-0.50) K/uL Basophils # (Manual) (0-0.2) K/uL Myelocytes # (Manual) (0-0) K/uL Blast Cells # (Man) (0-0) K/uL Polychromasia Ovalocytes Acanthocytes (Spur) Sodium 134 L (136-145) mmol/L Potassium 3.8 (3.5-5.1) mmol/L Chloride 103 (98-107) mmol/L Carbon Dioxide 24 (21-32) mmol/L Anion Gap 7 (3-11) BUN 25 H (6-23) mg/dl Creatinine 1.52 H (0.6-1.4) mg/dl Est Cr Clr Drug Dosing 36.0 ml/min Est GFR ( Amer) 47.4 ml/min Est GFR (Non-Af Amer) 40.9 ml/min BUN/Creatinine Ratio 16.4 (10-20) Glucose 177 H (70-99(Fasting)) mg/dl POC Glucose 150 H 109 H (70-99) mg/dl Uric Acid 5.6 (2.6-7.2) mg/dl Calcium 9.0 (8.6-10.3) mg/dl Phosphorus (2.5-4.9) mg/dl Magnesium (1.7-2.4) mg/dl B-Natriuretic Peptide (0-100) pg/ml 10/08/22 10/08/22 10/08/22 Range/Units 11:10 07:17 07:17 WBC 0.76 L* (4.8-10.8) K/ul RBC 2.53 L (4.70-6.10) M/uL Hgb 8.9 L (14.0-18.0) g/dl Hct 24.4 L (42.0-52.0) % MCV 96.4 (80.0-100.0) fL MCH 35.2 H (25.0-34.0) pg MCHC 36.5 H (32.0-36.0) g/dL RDW Std Deviation 58.2 H (36.4-46.3) fL RDW Coeff of Carola 16.9 H (11.5-14.5) % Plt Count 25 L* (130-400) K/uL MPV 11.5 (9.4-12.4) fL Immature Gran % (Auto) 0.0 % Neut % (Auto) 34.2 % Lymph % (Auto) 57.9 % [place] % (Auto) 7.9 % Eos % (Auto) 0.0 % Baso % (Auto) 0.0 % Neut # (Auto) 0.26 L* (1.40-6.50) K/uL Lymph # (Auto) 0.44 L (1.2-3.4) K/uL [place] # (Auto) 0.06 L (0.11-0.59) K/uL Eos # (Auto) 0.00 (0-0.50) K/uL Baso # (Auto) 0.00 (0-0.2) K/uL Immature Gran # (Auto) 0.00 L (0.01-0.20) K/uL Neutrophils % (Manual) % Lymphocytes % (Manual) % Monocytes % (Manual) % Eosinophils % (Manual) % Basophils % (Manual) % Myelocytes % (Man) % Blast Cells % (Manual) % Neutrophils # (Manual) (1.40-6.50) K/uL Total Absolute Neuts (1.4-6.5) K/uL Lymphocytes # (Manual) (1.2-3.4) K/uL Total Abs Lymphocytes (1.2-3.4) K/uL Monocytes # (Manual) (0.11-0.59) K/uL Eosinophils # (Manual) (0-0.50) K/uL Basophils # (Manual) (0-0.2) K/uL Myelocytes # (Manual) (0-0) K/uL Blast Cells # (Man) (0-0) K/uL Polychromasia 1+ Ovalocytes Acanthocytes (Spur) 2+ Sodium (136-145) mmol/L Potassium (3.5-5.1) mmol/L Chloride (98-107) mmol/L Carbon Dioxide (21-32) mmol/L Anion Gap (3-11) BUN (6-23) mg/dl Creatinine (0.6-1.4) mg/dl Est Cr Clr Drug Dosing ml/min Est GFR ( Amer) ml/min Est GFR (Non-Af Amer) ml/min BUN/Creatinine Ratio (10-20) Glucose (70-99(Fasting)) mg/dl POC Glucose 277 H (70-99) mg/dl Uric Acid (2.6-7.2) mg/dl Calcium (8.6-10.3) mg/dl Phosphorus (2.5-4.9) mg/dl Magnesium (1.7-2.4) mg/dl B-Natriuretic Peptide 136 H (0-100) pg/ml 10/08/22 Range/Units 07:17 WBC (4.8-10.8) K/ul RBC (4.70-6.10) M/uL Hgb (14.0-18.0) g/dl Hct (42.0-52.0) % MCV (80.0-100.0) fL MCH (25.0-34.0) pg MCHC (32.0-36.0) g/dL RDW Std Deviation (36.4-46.3) fL RDW Coeff of Carola (11.5-14.5) % Plt Count (130-400) K/uL MPV (9.4-12.4) fL Immature Gran % (Auto) % Neut % (Auto) % Lymph % (Auto) % [place] % (Auto) % Eos % (Auto) % Baso % (Auto) % Neut # (Auto) (1.40-6.50) K/uL Lymph # (Auto) (1.2-3.4) K/uL [place] # (Auto) (0.11-0.59) K/uL Eos # (Auto) (0-0.50) K/uL Baso # (Auto) (0-0.2) K/uL Immature Gran # (Auto) (0.01-0.20) K/uL Neutrophils % (Manual) % Lymphocytes % (Manual) % Monocytes % (Manual) % Eosinophils % (Manual) % Basophils % (Manual) % Myelocytes % (Man) % Blast Cells % (Manual) % Neutrophils # (Manual) (1.40-6.50) K/uL Total Absolute Neuts (1.4-6.5) K/uL Lymphocytes # (Manual) (1.2-3.4) K/uL Total Abs Lymphocytes (1.2-3.4) K/uL Monocytes # (Manual) (0.11-0.59) K/uL Eosinophils # (Manual) (0-0.50) K/uL Basophils # (Manual) (0-0.2) K/uL Myelocytes # (Manual) (0-0) K/uL Blast Cells # (Man) (0-0) K/uL Polychromasia Ovalocytes Acanthocytes (Spur) Sodium 136 (136-145) mmol/L Potassium 4.3 (3.5-5.1) mmol/L Chloride 104 (98-107) mmol/L Carbon Dioxide 26 (21-32) mmol/L Anion Gap 6 (3-11) BUN 21 (6-23) mg/dl Creatinine 1.24 (0.6-1.4) mg/dl Est Cr Clr Drug Dosing 44.2 ml/min Est GFR ( Amer) 60.6 ml/min Est GFR (Non-Af Amer) 52.3 ml/min BUN/Creatinine Ratio 16.9 (10-20) Glucose 186 H (70-99(Fasting)) mg/dl POC Glucose (70-99) mg/dl Uric Acid 6.1 (2.6-7.2) mg/dl Calcium 8.7 (8.6-10.3) mg/dl Phosphorus 4.1 D (2.5-4.9) mg/dl Magnesium 2.0 (1.7-2.4) mg/dl B-Natriuretic Peptide (0-100) pg/ml PG Care Time/CCT Total # of Minutes Spent Total Time Spent with Patient: Total time spent is greater than 50% in coordination of care (as documented) at patient's floor/unit and/or counseling patient: Coding Diagnoses
--- NOTE | 2022-10-09 08:11 | XRay Report ---
XR chest 1V portable HISTORY: eval pulm congestion COMPARISON: Chest 10/05/2022. FINDINGS: No pneumothorax. No pleural effusions. The cardiac silhouette remains slightly enlarged. Th ere are calcifications within the aortic knob. There are low lung volumes with a few bibasilar linear densities. The upper lung zones remain clear. No evidence for pulmonary edema. IMPRESSION: 1. Low lung volumes with a few bibasilar linear densities. These are nonspecific but favor subsegment al atelectasis. 2. Stable cardiomegaly. ACT 112: Negative or not required by law. Electronically signed by: Tylor Carlin M.D. 10/09/2022 8:09 AM
[2022-10-09] MEDS: allopurinoL 300 MG TAB PO SCH (08:39)
[2022-10-09] MEDS: INSULIN ASPART PER UNIT CHARGE SC SCH ×2 (08:39→11:51)
[2022-10-09] MEDS: ATORVASTATIN 20 MG TAB PO SCH (08:40)
[2022-10-09] MEDS: CYANOCOBALAMIN (B-12) 500 MCG TABLET PO SCH (08:40)
[2022-10-09] MEDS: LOSARTAN POTASSIUM 50 MG TAB PO SCH (08:40)
[2022-10-09] MEDS: MAGNESIUM OXIDE 400 MG TAB PO SCH (08:40)
[2022-10-09] MEDS: amLODIPine BESYLATE 5 MG TAB PO SCH (08:40)
[2022-10-09] MEDS: FLUCONAZOLE 100 MG TAB PO SCH (08:40)
[2022-10-09] MEDS: ACYCLOVIR 400 MG TAB PO SCH (08:41)
[2022-10-09] MEDS: DOCUSATE SODIUM/SENNA 50/8.6MG TAB PO SCH (08:41)
[2022-10-09] MEDS: LANTUS PER UNIT CHARGE SC SCH (08:46)
[2022-10-09] MEDS ORDERED: POLYETHYLENE (MIRALAX) 17 GM PACK PO SCH (09:00)
--- NOTE | 2022-10-09 09:11 | Hospitalist Progress Note ---
Date of Service October 09, 2022 Assessment & Plan (1) Acute myeloid leukemia: Plan: Has tolerated the start of azacitidine quite well and although there was a slight elevation of creatinine yesterday, it has returned to baseline as of today. Uric acid and potassium are still in good range, there have been no signs of tumor lysis. He remains neutropenic but his platelets have remained above 20,000 and his hemoglobin is above 8 g/dL. If he is clinically stable, could discharge today once he has received his azacitidine dose which can be given as soon as that can be coordinated. It would be all right for him to omit the dose for tomorrow and we will resume the treatment as an outpatient on Tuesday in the [facility]. He is scheduled for his azacitidine dose there at 8:30 AM that day. He will then be going to [facility] on Tuesday afternoon for second opinion from the leukemia team there. Our anticipation is to complete a total of 7 initial doses of azacitidine by of next week and potentially add venetoclax depending on [place]'s input. He should be discharged with 3 additional days of allopurinol and we will be rechecking his uric acid on Tuesday and Tuesday next week with the potential to stop it after that time. He should be discharged on fluconazole 200 mg daily, levofloxacin 250 mg daily, and acyclovir 400 mg twice daily all to continue open endedly as infectious prophylaxis. He should contact the [facility] immediately at [phone] (available ) for fever or unusual bruising/bleeding and reminded of his daily appointments there next week which have been prearranged. Plan See details above, if clinically stable can discharge with ongoing infectious disease prophylaxis and allopurinol with planned continuation of his azacitidine as an outpatient starting on Tuesday. Would assure that he does receive the azacitidine dose today before discharge and give instructions as above for immediately recontacting us for fever or unusual bruising or bleeding Admission and Anticipated Discharge Date Admission Date: October 05, 2022 Subjective I am working remotely and cannot directly examine the patient but have reviewed his inpatient notes and laboratories which all seem stable Results & Data Results & Data Vital Signs (Past 12 Hours) Vital Signs Temp Pulse Pulse Resp BP Pulse Ox O2 Del Method 10/09/22 07:20 36.5 C 74 17 143/68 H 90 Room Air 10/09/22 03:33 37.4 C 68 18 160/80 H 94 Room Air 10/09/22 00:40 77 10/08/22 23:57 37.1 C 74 20 145/74 H 91 Room Air PG Care Time/CCT Total # of Minutes Spent Total Time Spent with Patient: Total time spent is greater than 50% in coordination of care (as documented) at patient's floor/unit and/or counseling patient: Coding Level of Care Code 42478 SUB INP/OBS CARE 06/30MIN Diagnoses Acute myeloid leukemia C92.00
[2022-10-09] MEDS: levoFLOXacin 250 MG TABLET PO SCH (11:52)
[2022-10-09] MEDS: ONDANSETRON 8MG OD TAB PO SCH (13:30)
[2022-10-09] MEDS: AZACITIDINE SQ SCH (14:36)
--- NOTE | 2022-10-09 15:54 | Discharge Summary ---
Date of Service October 09, 2022 Admission HPI Per Admitting Provider Akira is an 87-year-old male with a past medical history of AML, DM, hypertension, hyperlipidemia, orthostatic hypotension, and neutropenia who presents to the emergency department with high glucose levels. He was at [facility] following up for a new diagnosis of AML when he was found to have significant hyperglycemia, was given 10 units of insulin, and referred to the ER for further care Akira is seen at the bedside with his two sons present. He was at the [facility] seeing Dr. Tay and was going to see Tanya for AML. Started seeing Dr. Tay 09/17. Had recently gotten prelim results of bone marrow aspiration performed last Tuesday consistent with AML. INitial AML workup was triggered by overall fatigue and weakness which has been present for many weeks. After all blood counts were low went to ER, and was referred to oncology for pancytopenia after. September 17 was scheduled for bone marrow biopsy after getting B12 injection for deficiency. Had 1 pRBC transfusion for low levels last week. Has a hx of DM2, overall sugar levels have been climbing and very poorly controlled. Got a test kit last night from the pharmacy and was 515. >600 this AM (POC machine from pharmacy maxed out). Took first shot of insulin at 12:15pm today, had never beenon insulin prior. Dr. Tay was concerned about BSG and also wanted to facilitate AML care so recommended ER evaluation. Hx HTN, losartan recently decreased by half due to orthostasis a few weeks ago. Aspirin held for several days due to BM biopsy. No hx of CAD/stroke/AR, takes aspirin for primary prevention due to HTN. Hx prostate cancer 14 years ago, had 42 radiation treatments and 3 years of androgen deprivation. No problems since that time. No LUTS. Medical History: Reviewed Medications: Reviewed Surgical History: Reviewed Family history: Reviewed Allergies: Reviewed Social History: Code Status: Admission Exam Per Admitting Provider Physical Exam: General: A&Ox3. NAD. Cooperative. History is collected with assistance of sons about HEENT: Atraumatic, normocephalic. MM dry pupils equal and reactive to light. Vision and hearing grossly intact Pulm: CTAB A&P. -wheezes, -rales, -rhonchi. Symmetrical chest rise. No increased work of breathing. No respiratory distress. Cardiac: RRR, -mrg. Radial pulses intact and symmetrical. Abdominal: Nontender, nondistended, soft. BS present. Extremities: Warm, dry. Principal Diagnosis Hyperglycemia, AML, Anemia Discharge Exam General: chronically ill appearing male, sitting up in bed, eating breakfast, NAD HEENT: head normocephalic, atraumatic, mmm Resp: diminished in the bases/associated crackles, no wheezing/rales, on room air 91% CV: regular rhythm, +SYSTOLIC murmur, S1/S2 appreciated, no pitting edema/calf tenderness, pulses palpable GI: +BS, soft/NT : no montejo, urinal at bedside MSK/Neuro: no focal deficits Psych: AOx3, cooperative with exam Skin: cool, dry Discharge Data Allergies Allergy/AdvReac Type Severity Reaction Status Date / Time No Known Allergies Allergy Verified 10/05/22 18:05 Consultations 10/05/22 18:41 ED Decision to Admit Stat 10/05/22 20:41 Consult Oncology Routine Ordered Studies Chest X-Ray 10/05/22 15:05 SINGLE VIEW CHEST CLINICAL HISTORY: Atypical chest pain FINDINGS: An AP, portable, upright chest radiograph is compared to study dated 09/03/2022. The heart is mildly enlarged noting atherosclerotic calcification of the thoracic aorta. The pulmonary vasculature is noncongested. There is bibasilar scarring/atelectasis. The lungs and pleural spaces are otherwise clear. No pneumothorax is seen. The skeletal structures are osteopenic. The bony thorax is grossly intact. IMPRESSION: Cardiomegaly with no acute cardiopulmonary abnormality identified. ACT 112: Negative or not required by law. Electronically signed by: Ken Gupta M.D. 10/05/2022 4:42 PM 10/05/22 ECHOCARDIOGRAM Aortic valve sclerosis moderate, without significant aortic valvular stenosis. At least moderate mitral regurgitation; highly eccentric MR jet, 2 jets noted. Normal EF. Severe LAE by LA volume index Chest X-Ray 10/09/22 07:00 XR chest 1V portable HISTORY: eval pulm congestion COMPARISON: Chest 10/05/2022. FINDINGS: No pneumothorax. No pleural effusions. The cardiac silhouette remains slightly enlarged. There are calcifications within the aortic knob. There are low lung volumes with a few bibasilar linear densities. The upper lung zones remain clear. No evidence for pulmonary edema. IMPRESSION: 1. Low lung volumes with a few bibasilar linear densities. These are nonspecific but favor subsegmental atelectasis. 2. Stable cardiomegaly. ACT 112: Negative or not required by law. Electronically signed by: Tylor Carlin M.D. 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 Flow cytometry w/ CD34 positive myeloblasts consistent with acute myeloid leukemia, blasts represented 67% of total cellular component. Was admitted w/ hyperglycemia as outlined below, BSGs much improved and have remained stable Patient is s/p 2u PRBC, irradiated on 10/06 --> repeat hgb stable at 8.9 and stable x 2 days at 8.4 without bleeding reported B12 prior lows -- continued B12 supplementation 1000mcg inpatient and at discr No recent infectious symptoms, blood cultures NGTD at discharge Heme/onc consulted (see notes) -- started azacitidine 10/07, scheduled daily and monitored for TLS, no evidence at present (did have slight bump in Cr, resolved, but had gotten dose lasix). Plt stable at 27 and no bleeding Discussed w/ Dr Tay on 10/09, and given stability on labs and tolerance to medications, felt stable for discharge and to resume treatment at [facility] on Tuesday morning and then he will be traveling to [place] for further treatment options/discussion. 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 BSG 454 on admission w/ anion gap, elevated Cr, bicarb 19, Na 131 (corrected to normal) Placed on insulin gtt, then D5 1/2NSS w/ resolution in electrolyte abd/closed anion gap and switched to basal/bolus DM educator consulted and discussed w/ patient during inpatient stay Discussed w/ patient (JORDAN retired RN, family to be able to assist) and planned glaringe 30 u QAM for now and he is to monitor his blood sugars at least twice daily and notify provider if repeated values >200 or <90 Patient stated his children picked up his supplies to check his blood sugars at home prior to discharge To continue supplementation as well given overall poor PO intake however had been stable (3) Hyperglycemia: as above Now off insulin, no further anion gap, BSGs stable and planned once daily glargine at discharge for ease of administration which can be further increased pending BSGs outpatient BSGs acceptable (4) HTN (hypertension): w/ hx orthostasis Cr elevated on admit, likely JAYSON/prerenal azotemia Losartan was decreased from 100mg to 50mg 09/26 due to orthostatic symptoms and aspirin held for thrombocytopenia (no hx CAD/MA/CVA) Remained on amlodipine daily, losartan resumed and BPs stable Held/discontinued HCTZ at discahrge given poor PO at baseline and prevention of worsening renal function/dehydration (5) Uncontrolled diabetes mellitus: as above (6) Hyperlipidemia: Continued atorvastatin 20 mg (7) Murmur: systolic murmur on exam, O2 use initially on admit (anemic, improved since PRBC) Known MR, follows w/ [facility] cards Repeat ECHO appearing similar -- Aortic valve sclerosis moderate, without significant aortic valvular stenosis. At least moderate mitral regurgitation; highly eccentric MR jet, 2 jets noted. Normal EF. Severe LAE by LA volume index Can f/u cards outpatient Plan DVT proph -- chemo not ordered given low plt. continued SCDs while inpatient Discussed w/ heme/onc and patient and felt stable for dc and will have close f/u Tuesday morning for repeat SQ chemo as above and labs w/ [facility] and then travel to [place] as already arranged Total Time Total Time Spent Total Time Spent (In Minutes): 45 Discharge Plan Discharge Items Patient Disposition: Home - Self-Care Reason For Visit: HYPERGLYCEMIA, AML Discharge Diagnosis: AML Goals: You have been hospitalized for an acute medical problem. During your stay at [facility], we have made an effort to correct the problem that brought you to the hospital while keeping you as comfortable as possible. Medications were used to bring your condition under control and your discharge instructions will include directions for any medications you should take after leaving the hospital. Please make sure you see your Primary Care Provider as part of your follow up plan. Activity: As commented below Non-emergency contact: Primary Care Provider and Oncologist Call non-emergency contact if: you have any medication questions, your symptoms worsen and you have a fever Follow-up/Referrals: Denisse Acharya CRNP [Primary Care Provider] - 10/19/22 10:30 am [place] Tay MD [Physician] - 10/11/22 Diet: Carb Consistent or DM2 Addtl Attending Provider Instructions: You have been hospitalized for high blood sugars and we have started chemotherapy for you AML while you have been in the hospital. You did get a blood transfusion earlier in the stay but your blood counts have remained stable. Dr Tay will resume your chemo on Tuesday morning before you head to [facility] and will do repeat labs on Tuesday. You should continue glargine (long acting insulin) 30 units in the morning and monitor your blood sugars at home.You should be checking your blood sugars at least twice a day at home and notify provider of blood sugars frequently soigs385 or less than 90. Please continue supplementation for your diet once a day to prevent further weight loss. Dr Tay would like you to be on medications for prophylaxis including Acyclovir 400mg by mouth twice daily, levofloxacin 250mg daily, fluconazole 200mg daily in the meantime. He would also like you on Allopurinol 300mg daily for the next three days but I did send in a 30 day supply so you have them for when you resume treatment without need for additoinal refill. We have stopped your hydrochlorothiazide given limited oral intake to prevent dehydration at this time and your blood pressures have been stable. Please follow up with Dr Tay/cancer center on Tuesday, as already arranged, and primary care within the week to monitor your progress. Please return to the ER with worsening shortness of breath, chest pain, bleeding, or for any other symptoms concerning for you. It has been a pleasure being a part of the medical team providing for you while you have been in the hospital. Take care! Pending Studies at Discharge: No Stand-Alone Forms: My [facility], Smoking Cessation Medications and DC Order Prescriptions: New fluconazole [Diflucan] 100 mg Tablet 200 mg PO QAM 30 Days Qty: 60 0RF levofloxacin 250 mg Tablet 250 mg PO DAILY@1100 30 Days Qty: 30 0RF acyclovir 400 mg Tablet 400 mg PO BID 30 Days Qty: 60 0RF allopurinol 300 mg Tablet 300 mg PO DAILY 30 Days Qty: 30 0RF Continued metformin 1,000 mg tablet 1,000 mg PO BID Qty: 180 3RF Rx Instructions: Patient aware of the increased dose atorvastatin 20 mg tablet 20 mg PO DAILY Qty: 90 3RF (DME) OneTouch Ultra Test Strip See Rx Instructions .Route Qty: 100 3RF Rx Instructions: test 2 x a day (DME) blood-glucose meter [Blood Glucose Monitoring] Kit See Rx Instructions .Route Qty: 1 0RF Rx Instructions: test 2 x a day (DME) lancets [BD Ultra Fine Lancets] 33 gauge misc See Rx Instructions .Route Qty: 100 2RF Rx Instructions: test 2 x a day (DME) Assure ID Pen Needle 30 gauge x 3/16" needle See Rx Instructions .Route Qty: 100 0RF Rx Instructions: daily with lantus losartan 50 mg tablet 50 mg PO DAILY Qty: 90 3RF Rx Instructions: DOSE CHANGE aspirin 81 mg tablet,delayed release (DR/EC) 81 mg PO DAILY amlodipine 10 mg tablet 10 mg PO DAILY psyllium husk [Fiber (psyllium husk)] 0.52 gram Capsule 0.52 g PO BID cyanocobalamin (vitamin B-12) [Vitamin B-12] 1,000 mcg tablet 1,000 mcg PO DAILY Qty: 30 0RF magnesium hydroxide 400 mg (170 mg magnesium) tablet,chewable 400 mg PO DAILY Qty: 60 0RF Changed insulin glargine [Lantus Solostar U-100 Insulin] 100 unit/mL (3 mL) insulin pen 30 unit subcut QAM Qty: 15 2RF Discontinued hydrochlorothiazide 12.5 mg tablet 12.5 mg PO QAM Rx Instructions: TAKE 1 TABLET BY MOUTH DAILY IN THE MORNING. Discharge Orders: Discharge Order (Routine); Ordered 10/09/22 Ordered By: Nicolasa Hoffmann Admission Data Admit Date/Time: 10/05/22 19:25 Attending Provider: Douglas Corbin Admit Provider: Estiven Ramirez Primary Care Provider: Denisse Acharya Other Providers: Estiven Ramirez ; [place] Tay Other Interventions: Discharge Summary Assessment (RN) Last Done: 10/09/22 13:39 Supervising Physician Co-Signing Physician Notes The patient was seen by me. The chart was reviewed. Case discussed with BLANCA Rob. Agree with assessment and plan. He will be discharged home today, October 09 Coding Level of Care Code 90577 INP/OBS DISCH >30 MIN Diagnoses 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
== END 2022-10-09 16:02 | disposition home health service (06) | DRG 638 ==
LOC: ED 14:25 → SUATTDRO 19:25 → 2E 19:25